=== PATIENT | male | born 1985 ===

== ENCOUNTER 2022-08-25 16:26 | Emergency (ER) | payer MEDICARE, MEDICAID, SELFPAY ==
[2022-08-25 16:39] VITALS: BP 131/114; PULSE 107; RESP 18; TEMP 36.9; O2SAT 96; BMI 31.7
--- NOTE | 2022-08-25 16:39 | ED.PSYCH ---
HPI - Psych General Chief Complaint: Psychiatric Symptoms Stated Complaint: si Time Seen by Provider: 08/25/22 16:28 Source: patient, EMS and police Mode of arrival: EMS Limitations: no limitations History of Present Illness HPI Narrative: 37-year-old male presents via EMS for suicidal statements, self-injurious behaviors, and strenuous relationship with his significant other. He does admit to crack cocaine use, is on Suboxone, and has prescribed Klonopin. Patient is agitated and uncooperative. MD complaint: suicidal ideation, feels depressed and substance abuse Onset (ago): year(s) Duration: constant History of same: Yes Relieving factors: none Exacerbating factors: drug use Context: recent drug abuse and significant life stressor Associated psychiatric symptoms: depression and suicidal ideation Associated symptoms: denies other symptoms If self harm: admits thoughts of self harm and self-inflicted trauma Related Data Home Medications Medication Instructions Recorded Confirmed buprenorphine 2 mg-naloxone 0.5 mg 1 strip sublingual DAILY 08/25/22 08/25/22 sublingual film (Suboxone) clonidine HCl 0.3 mg tablet 1 tab PO BID PRN anxiety 08/25/22 08/25/22 lisinopril 20 1 tab PO DAILY 08/25/22 08/25/22 mg-hydrochlorothiazide 25 mg tablet metformin 1,000 mg tablet 1 tab PO BID 08/25/22 08/25/22 omeprazole 40 mg capsule,delayed 1 cap PO QAM 08/25/22 08/25/22 release Allergies Allergy/AdvReac Type Severity Reaction Status Date / Time No Known Allergies Allergy Verified 08/25/22 16:40 Review of Systems Review of Systems: Constitutional: No Fever, No Chills Cardiovascular: No Chest Pain, No SOB Respiratory: No Cough, No Sputum Gastrointestinal: No Nausea, No Vomiting, No Diarrhea, No abdominal Pain Genitourinary: No Dysuria, No Hematuria Musculoskeletal: No joint pain, No Myalgias, No Joint Swelling Skin: No Skin Lesions, No rash Neuro: No Weakness, No Numbness, No Dizziness, No Headache Psych: Positive substance abuse, Positive Anxiety, positive Depression, No SI/HI/AH/VH Yes all other systems are reviewed and are negative PMFSH Past Medical History Attestation statement: The following information was validated with the patient. Source: old records reviewed Social History Social History Advance Directives: No Advance Directives Information Provided: No Guardian: No Physical Exam Vital Signs: Vital Signs: Last Vital Signs Temp 98.4 F 08/25/22 16:39 Pulse 107 H 08/25/22 16:39 Resp 15 08/25/22 21:25 BP 131/114 H 08/25/22 16:39 Pulse Ox 96 08/25/22 16:39 O2 Del Method 08/25/22 16:39 BMI result Body Mass Index 31.7 Appearance: Alert. Oriented X3. Moderate psychiatric distress. Eyes: Pupils equal, round and reactive to light. ENT: Pharynx normal. Neck: Normal inspection. Neck supple. CVS: Normal heart rate and rhythm. Pulses normal. Respiratory: No respiratory distress. Breath sounds normal. Abdomen: Soft and nontender. Skin: Superficial lacerations to left forearm. Various stages of healing. Extremities: No lower extremity edema. Gait balance and coordinated. Neuro: No motor deficit. No sensory deficit. Cranial nerves 2-12 intact. Course Course Course Narrative: 37-year-old male presents via EMS with police escort for suicidal statements, and self-injurious behaviors. Patient is having relationship issues, and he cut his left arm to help alleviate his emotional distress. He does report using crack cocaine, and Klonopin. Patient belligerent, argumentative, and needs multiple redirections. Will order labs, and chemistries. Crisis consult pending. He did have a recent admission to [facility]. Patient believes that his Tdap vaccine is up-to-date. 20:00 plan of for evaluation in the morning, and CHD tomorrow afternoon possibly. Patient is medically cleared. Patient's blood pressure is elevated with an elevated heart rate consistent with crack cocaine abuse. 20:41 patient is belligerent, slamming his head against the wall, asking to leave. Medication restraint ordered at this time. Security at bedside. Medications Administered Generic Name Dose Route Start Last Admin Trade Name Freq PRN Reason Stop Dose Admin Buprenorphine/Naloxone 1 film 08/26/22 09:00 08/25/22 20:08 Buprenorphine/Naloxone 2/0.5mg Film SUBLINGUAL 1 film DAILY IVIS Administration Discontinued Medications Generic Name Dose Route Start Last Admin Trade Name Freq PRN Reason Stop Dose Admin Diphenhydramine HCl 50 mg 08/25/22 20:13 08/25/22 20:25 Diphenhydramine Hcl 50 Mg/Ml Vial IM 08/25/22 20:14 50 mg ONCE ONE Administration Haloperidol Lactate 5 mg 08/25/22 20:13 08/25/22 20:25 Haloperidol Lactate 5 Mg/Ml Vial IM 08/25/22 20:14 5 mg STAT STA Administration Lorazepam 2 mg 08/25/22 20:13 08/25/22 20:25 Lorazepam 2 Mg/Ml Vial IM 08/25/22 20:14 2 mg STAT STA Administration Medical Decision Making Differential Diagnosis Differential Diagnoses: The differential diagnosis associated with the presentation includes Psychosis, self-injurious behaviors Admission/Observation Consideration of admission/observation: Escalation of care including admission/observation considered Possible M5 admission Consult Healthcare Provider Management of the patient was discussed with: Behavioral Health Provider Lab Data [facility] Lab Attestation statement: I reviewed the patient's lab results. 08/25/22 16:58 08/25/22 16:58 Labs: Lab Results 08/25/22 08/25/22 08/25/22 Range/Units 16:51 16:58 16:58 WBC 7.2 (4.8-10.8) X10*3/uL RBC 5.13 (4.60-5.80) X10*6/uL Hgb 14.6 (14.0-18.0) g/dl Hct 43.2 (42.0-52.0) % MCV 84.2 (80.0-98.0) fL MCH 28.5 (27.0-33.0) pg MCHC 33.8 (31.0-36.0) g/dl RDW 13.4 (11.0-16.0) % Plt Count 220 (160-400) X10*3/uL MPV 9.8 (9.4-12.4) fL Immature Gran % (Auto) 0.4 (0.0-0.4) % Neut % (Auto) 60.3 (45-73) % Lymph % (Auto) 28.3 (20-40) % [place] % (Auto) 8.5 (2-11) % Eos % (Auto) 1.9 (0-4) % Baso % (Auto) 0.6 (0-2) % Lymph # (Auto) 2.0 (1.2-4.9) X10*3/uL [place] # (Auto) 0.6 (0.1-1.2) X10*3/uL Eos # (Auto) 0.1 (0.0-0.4) X10*3/uL Baso # (Auto) 0.0 (0.0-0.2) X10*3/uL Abs Immat Gran (auto) 0.03 (0.00-0.03) X10*3/uL Absolute Neuts (auto) 4.4 (2.0-8.3) x10*3/uL Absolute Nucleated RBC 0.000 (0.0-0.012) X10*3/uL Nucleated RBC % (auto) 0.0 (0.0-0.2) /100WBC Sodium 144 (135-145) mmol/L Potassium 4.5 (3.3-5.1) mmol/L Chloride 111 H (96-108) mmol/L Carbon Dioxide 25 (22-29) mmol/L Anion Gap 13 (12-20) BUN 10 (9-16) mg/dL Creatinine 0.84 (0.5-1.4) mg/dL Estim Creat Clear Calc 135.9 Estimated GFR > 60 Random Glucose 158 H (60-115) mg/dL Calcium 9.5 (8.4-10.2) mg/dL Total Bilirubin 0.3 (0.0-1.0) mg/dL AST 15 (5-37) U/L ALT 18 (0-40) U/L Alkaline Phosphatase 78 (39-117) U/L Total Protein 7.0 (6.5-8.0) g/dL Albumin 4.4 (3.5-5.0) g/dL Urine Opiates Screen Not Detected (Not Detect) Urine Fentanyl Screen POSITIVE H (Not Detect) Ur Barbiturates Screen Not Detected (Not Detect) Ur Phencyclidine Scrn Not Detected (Not Detect) Ur Amphetamines Screen Not Detected (Not Detect) U Benzodiazepines Scrn Not Detected (Not Detect) Urine Cocaine Screen POSITIVE H (Not Detect) U Marijuana (THC) Screen POSITIVE H (Not Detect) Ethyl Alcohol < 10 mg/dL Influenza Type A (PCR) (Negative) Influenza Type B (PCR) (Negative) RSV RNA Qual (PCR) (Negative) SARS-CoV-2 RNA (RT-PCR) (Negative) 08/25/22 Range/Units 16:58 WBC (4.8-10.8) X10*3/uL RBC (4.60-5.80) X10*6/uL Hgb (14.0-18.0) g/dl Hct (42.0-52.0) % MCV (80.0-98.0) fL MCH (27.0-33.0) pg MCHC (31.0-36.0) g/dl RDW (11.0-16.0) % Plt Count (160-400) X10*3/uL MPV (9.4-12.4) fL Immature Gran % (Auto) (0.0-0.4) % Neut % (Auto) (45-73) % Lymph % (Auto) (20-40) % [place] % (Auto) (2-11) % Eos % (Auto) (0-4) % Baso % (Auto) (0-2) % Lymph # (Auto) (1.2-4.9) X10*3/uL Austin # (Auto) (0.1-1.2) X10*3/uL Eos # (Auto) (0.0-0.4) X10*3/uL Baso # (Auto) (0.0-0.2) X10*3/uL Abs Immat Gran (auto) (0.00-0.03) X10*3/uL Absolute Neuts (auto) (2.0-8.3) x10*3/uL Absolute Nucleated RBC (0.0-0.012) X10*3/uL Nucleated RBC % (auto) (0.0-0.2) /100WBC Sodium (135-145) mmol/L Potassium (3.3-5.1) mmol/L Chloride (96-108) mmol/L Carbon Dioxide (22-29) mmol/L Anion Gap (12-20) BUN (9-16) mg/dL Creatinine (0.5-1.4) mg/dL Estim Creat Clear Calc Estimated GFR Random Glucose (60-115) mg/dL Calcium (8.4-10.2) mg/dL Total Bilirubin (0.0-1.0) mg/dL AST (5-37) U/L ALT (0-40) U/L Alkaline Phosphatase (39-117) U/L Total Protein (6.5-8.0) g/dL Albumin (3.5-5.0) g/dL Urine Opiates Screen (Not Detect) Urine Fentanyl Screen (Not Detect) Ur Barbiturates Screen (Not Detect) Ur Phencyclidine Scrn (Not Detect) Ur Amphetamines Screen (Not Detect) U Benzodiazepines Scrn (Not Detect) Urine Cocaine Screen (Not Detect) U Marijuana (THC) Screen (Not Detect) Ethyl Alcohol mg/dL Influenza Type A (PCR) NEGATIVE (Negative) Influenza Type B (PCR) NEGATIVE (Negative) RSV RNA Qual (PCR) NEGATIVE (Negative) SARS-CoV-2 RNA (RT-PCR) NEGATIVE (Negative) External Record Review External record reviewed: Outpatient record Discharge Plan Discharge Clinical Impression: Suicidal ideation, Depression, Polysubstance abuse Patient Disposition: Still a Patient Prescriptions: No Action clonidine HCl 0.3 mg tablet 1 tab PO BID PRN (Reason: anxiety) omeprazole 40 mg capsule,delayed release(DR/EC) 1 cap PO QAM metformin 1,000 mg tablet 1 tab PO BID lisinopril-hydrochlorothiazide 20-25 mg tablet 1 tab PO DAILY buprenorphine-naloxone [Suboxone] 2-0.5 mg film 1 strip sublingual DAILY Interventions: [place]-Suicide Risk Severity Scale Last Done: 08/25/22 22:46
--- NOTE | 2022-08-25 17:00 | PC.NURSE ---
Pt changed over with security present, section 12 by Amelia SEGOVIA. Resistant initially upon arrival to changeover. Belongings secured in locker #6. Pt cooperative with providing urine and lab draw. Lab results pending, pt currently laying on bed in room.
[2022-08-25 17:04] LABS: MANUAL DIFF FLAG NO
[2022-08-25 17:05] LABS: Basophils Percent Auto 0.6 % (0-2); Eosinophils Absolute Auto 0.1 X10*3/uL (0.0-0.4); Eosinophils Percent Auto 1.9 % (0-4); Hematocrit 43.2 % (42.0-52.0); Hemoglobin 14.6 g/dl (14.0-18.0); Imm Gran Abs Auto 0.03 X10*3/uL (0.00-0.03); Imm Gran Pct Auto 0.4 % (0.0-0.4); Lymphocytes Percent Auto 28.3 % (20-40); Mean Corpuscular HGB Conc 33.8 g/dl (31.0-36.0); Mean Corpuscular Hemoglobin 28.5 pg (27.0-33.0); Mean Corpuscular Volume 84.2 fL (80.0-98.0); Mean Platelet Volume 9.8 fL (9.4-12.4); Monocytes Absolute Auto 0.6 X10*3/uL (0.1-1.2); Monocytes Percent Auto 8.5 % (2-11); Neutrophils Absolute Auto 4.4 x10*3/uL (2.0-8.3); Neutrophils Percent Auto 60.3 % (45-73); Platelet Count 220 X10*3/uL (160-400); Red Blood Count 5.13 X10*6/uL (4.60-5.80); Red Cell Distribution Width 13.4 % (11.0-16.0); White Blood Count 7.2 X10*3/uL (4.8-10.8)
[2022-08-25 17:17] LABS: Amphetamine Screen Urine Not Detected (Not Detect); Barbiturates, Urine Not Detected (Not Detect); Benzodiazepines Screen Urine Not Detected (Not Detect); Cannabinoid Screen Urine POSITIVE (Not Detect); Cocaine Screen Urine POSITIVE (Not Detect); Fentanyl, urine POSITIVE (Not Detect); Opiate Screen Urine Not Detected (Not Detect); Phencyclidine Screen Urine Not Detected (Not Detect)
[2022-08-25 17:23] LABS: Alanine Aminotransferase 18 U/L (0-40); Albumin Level 4.4 g/dL (3.5-5.0); Alkaline Phosphatase 78 U/L (39-117); Anion Gap 13 (12-20); Aspartate Amino Transferase 15 U/L (5-37); Bilirubin Total 0.3 mg/dL (0.0-1.0); Blood Urea Nitrogen 10 mg/dL (9-16); Calcium 9.5 mg/dL (8.4-10.2); Carbon Dioxide 25 mmol/L (22-29); Chloride 111 mmol/L (96-108); Creatinine Clr Calc Pharmacy 135.9; Estimated Glomerular Filt Rate > 60; Ethanol < 10 mg/dL; Glucose Random 158 mg/dL (60-115); Potassium 4.5 mmol/L (3.3-5.1); Sodium 144 mmol/L (135-145)
[2022-08-25 17:43] LABS: Influenza A PCR NEGATIVE (Negative); Influenza B PCR NEGATIVE (Negative); Resp Syncy Virus RNA Qual PCR NEGATIVE (Negative); SARS COV2 PCR INHOUSE NEGATIVE (Negative)
[2022-08-25] MEDS: Buprenorphine/Naloxone 2/0.5mg FILM 1 FILM SUBLINGUAL (20:08)
[2022-08-25 20:25] VITALS: RESP 20
[2022-08-25] MEDS: LORazepam 2 MG/ML VIAL IM (20:25)
[2022-08-25] MEDS: Haloperidol Lactate 5 MG/ML VIAL IM (20:25)
[2022-08-25] MEDS: diphenhydrAMINE HCL 50 MG/ML VIAL IM (20:25)
[2022-08-25 20:40] VITALS: RESP 18
[2022-08-25 20:55] VITALS: RESP 17
[2022-08-25 21:10] VITALS: RESP 17
[2022-08-25 21:25] VITALS: RESP 15
--- NOTE | 2022-08-25 22:31 | PC.NURSE ---
Patient really having hard time here in the POD, thinking he should not be here, he got even more agitated when his family members and friends refused to get him, patient started head banging against wall in his room, yelling, crying, and screaming at her girl friend begging to come pick him up, patient is emotionally dysregulated, offered option of medication to calm him down, agreed to Haldol 5 mg IM + Ativan 2 mg IM + Benadryl 50 mg IM, administered at 2024/patient accepted it willingly, VSS, patient was observed on 1:1 from 2024 - 2124, currently in bed appears sleeping, respiration +/=/non labored bilaterally, will continue to monitor.
[2022-08-26] MEDS: Nicotine Polacrilex 2 MG GUM 6 MG BUCCAL (00:19)
[2022-08-26 00:25] VITALS: BP 140/80; PULSE 88; RESP 17; TEMP 36.7; O2SAT 98
--- NOTE | 2022-08-26 06:10 | PC.NURSE ---
Patient slept most part of the night, out of room x 3 sleeping in chair in hallway, patient expecting discharge today may escalate if discharge doesn't happen, patient has labile mood, at time exhibits self abusive by banging his head against wall, patient made multiple phone call to his family and friends to have him hop picker, got agitated when no one agreed, medication compliant, VSS, will continue to monitor.
[2022-08-26] MEDS: Omeprazole 40 MG CAPSULE.DR PO (06:25)
[2022-08-26] MEDS: lisinopriL 20 MG TABLET PO (08:36)
[2022-08-26] MEDS: metFORMIN HCl 1,000 MG TABLET 1000 MG PO (08:36)
[2022-08-26] MEDS: Buprenorphine/Naloxone 2/0.5mg FILM 1 FILM SUBLINGUAL (08:36)
[2022-08-26] MEDS: hydroCHLOROthiazide 25 MG TABLET PO (08:36)
[2022-08-26] MEDS: cloNIDine HCL 0.1 MG TABLET 0.3 MG PO (08:36)
[2022-08-26 08:43] VITALS: BP 159/84; PULSE 94; RESP 16; O2SAT 98
== END 2022-08-26 08:51 | disposition home or self-care (01) ==
PROVIDERS: Nurse Practitioner Family; Emergency Provider Internal Medicine
DX: F33.1 Major depressive disorder, recurrent, moderate (principal); R45.851 Suicidal ideations; F14.10 Cocaine abuse, uncomplicated; Z20.822 Contact with and (suspected) exposure to COVID-19; Z20.828 Contact with and (suspected) exposure to other viral communicable diseases; Z79.899 Other long term (current) drug therapy
CPT/HCPCS: 0241U; 36415; 80053; 80307; 82077; 85025; 96372; 99285; J1200; J2060

== ENCOUNTER 2022-12-29 10:49 | Emergency (ER) | payer OTHER, SELFPAY ==
[2022-12-29 10:53] VITALS: BP 117/93; PULSE 102; RESP 16; TEMP 36.6; O2SAT 99; BMI 31.0
--- NOTE | 2022-12-29 11:41 | ED.GENADULT ---
HPI - General Adult General Chief complaint: General Medical Stated complaint: a strip? Time Seen by Provider: 12/29/22 11:07 Source: patient Mode of arrival: ambulatory Limitations: no limitations History of Present Illness HPI narrative: 37 yo male with history of opioid use disorder and cocaine use disorder who presents to the ER for suboxone dose. He goes to [facility] in [place] and his last dose was Friday, 12/27. He has been getting weekly prescriptions for 2mg per day. He admits to taking an extra dose the other day when he did not use cocaine. He denies any heroin use. He states he is feeling like he is withdrawing with cold sweats, anxiety, chills. no N/V/D or abdominal pain. MD complaint: suboxone dose, opiate withdrawal Onset (ago): day(s) Relieving factors: none Exacerbating factors: none Treatments prior to arrival: none Related Data Home Medications Medication Instructions Recorded Confirmed buprenorphine 2 mg-naloxone 0.5 mg 1 strip sublingual DAILY 08/25/22 08/25/22 sublingual film (Suboxone) clonidine HCl 0.3 mg tablet 1 tab PO BID PRN anxiety 08/25/22 08/25/22 lisinopril 20 1 tab PO DAILY 08/25/22 08/25/22 mg-hydrochlorothiazide 25 mg tablet metformin 1,000 mg tablet 1 tab PO BID 08/25/22 08/25/22 omeprazole 40 mg capsule,delayed 1 cap PO QAM 08/25/22 08/25/22 release Allergies Allergy/AdvReac Type Severity Reaction Status Date / Time No Known Allergies Allergy Verified 08/25/22 16:40 Review of Systems Review of Systems: Yes all other systems are reviewed and are negative [facility] Social History Social History Smoked in Last 30 Days: Yes Use of substances other than those prescribed or required for medical reasons: No Advance Directives: No Advance Directives Information Provided: No Physical Exam ED Vital Signs: Vital Signs - 24 hr 12/29/22 10:53 Temperature 98 F Pulse Rate 102 H Respiratory Rate 16 Blood Pressure 117/93 H Pulse Oximetry 99 Oxygen Delivery Method Room Air BMI result Body Mass Index 31.0 Appearance: Alert. Oriented X3. anxious, restless HEENT: normal inspection CVS: Normal heart rate and rhythm. Pulses normal. Respiratory: No respiratory distress. Skin: Skin warm and dry. Normal skin color. Normal skin turgor. No rashes. Extremities: normal inspection x4 Neuro: Oriented X 3. No motor deficit. No sensory deficit. Medications Administered Discontinued Medications Generic Name Dose Route Start Last Admin Trade Name Ryan PRN Reason Stop Dose Admin Buprenorphine/Naloxone 1 film 12/29/22 11:38 12/29/22 11:42 Buprenorphine/Naloxone 2/0.5mg Film SUBLINGUAL 12/29/22 11:39 1 film ONCE ONE Administration Medical Decision Making Medical Decision Making MDM Narrative: 37 yo male with history of polysubstance abuse on suboxone 2/0.5 daily presenting for a dose, c/o active withdrawal. [employer]ELOPMENT reviewed - has been getting 7 day supply and supposed to have enough until tomorrow but admits to taking an extra dose when he did not use cocaine will give 2mg/0.5 film now and have him f/u with his clinic tomorrow stable for d/c home Differential Diagnosis Differential Diagnoses: The differential diagnosis associated with the presentation includes opioid withdrawal, cocaine withdrawal Consult Healthcare Provider Management of the patient was discussed with: [employer] Manager ariel from recovery External Record Review External record reviewed: Prior outpatient labs Prescription Management I considered prescription management with: Pain Medication Chronic Conditions Patient?s care impacted by: Other (polysubstance abuse) Social Determinants Patient?s care significantly limited by Social Determinants of Health including: Alcoholism and drug addiction in family and Other Social Determinant of Health Critical Care Time Critical Care Time Critical Care Time: No Discharge Plan Discharge Clinical Impression: Opioid use disorder Patient Disposition: Home, Self-Care Instructions: Opioid Use Disorder (ED) Additional Instructions: You were given 2mg of suboxone today 12/29. Follow up with your clinic tomorrow Do not use IV drugs Prescriptions: No Action clonidine HCl 0.3 mg tablet 1 tab PO BID PRN (Reason: anxiety) omeprazole 40 mg capsule,delayed release(DR/EC) 1 cap PO QAM metformin 1,000 mg tablet 1 tab PO BID lisinopril-hydrochlorothiazide 20-25 mg tablet 1 tab PO DAILY buprenorphine-naloxone [Suboxone] 2-0.5 mg film 1 strip sublingual DAILY Interventions: ED Discharge Assessment Last Done: 12/29/22 11:48 Discharge Date/Time: 12/29/22 11:50
[2022-12-29] MEDS: Buprenorphine/Naloxone 2/0.5mg FILM 1 FILM SUBLINGUAL (11:42)
--- NOTE | 2022-12-29 11:42 | MHC.RECOVRN ---
Met with pt in [facility] after pt presented to ED needing Suboxone dose. Pt sitting on bed, extremely anxious, diaphoretic, pleading for Suboxone. Per JosePAT, pt received 7 day script on 12/23, 2 mg daily. Pt reports last dose on Wednesday 12/27. Pt reports missing appointment on Friday and has an appt scheduled tomorrow. Pt reports using cocaine and when he does not use cocaine he takes extra Suboxone, hence the lack of films. Pt denies other opioid use x 5 years. Pt educated on risks of precipitated withdrawal, verbalizes understanding. Discussed with provider, plan to administer 2 mg Suboxone and pt will follow up with outpatient provider tomorrow, 12/30.
--- NOTE | 2022-12-29 11:49 | PC.NURSE ---
Patient presents for dose of suboxone, patient is alert and oriented but restless in room. Patient has no complaints other than needing suboxone dose.
== END 2022-12-29 11:50 | disposition home or self-care (01) ==
PROVIDERS: Emergency Provider Emergency Medicine
DX: F11.23 Opioid dependence with withdrawal (principal); Z79.899 Other long term (current) drug therapy
CPT/HCPCS: 99283; 99284

== ENCOUNTER 2022-12-30 06:04 | Emergency (ER) | payer OTHER, SELFPAY ==
--- NOTE | 2022-12-30 | ECG_ITS ---
Test Reason : CHEST TIGHTNESS Blood Pressure : / mmHG Vent. Rate : 070 BPM Atrial Rate : 070 BPM P-R Int : 162 ms QRS Dur : 082 ms QT Int : 388 ms P-R-T Axes : 010 036 034 degrees QTc Int : 419 ms Normal sinus rhythm Normal ECG No previous ECGs available Referred By: Generic ED Physician Electronically Signed By:Joesph Kenney
--- NOTE | ~2022-12-30 | XR_ITS ---
EXAMINATION: XR CHEST CLINICAL INFORMATION: Chest pain COMPARISON: None available. TECHNIQUE: 2 views of the chest were obtained. FINDINGS: No significant abnormality is noted involving the heart, lungs, mediastinum, bony thorax or soft tissues. XR/XR chest 2V IMPRESSION: Unremarkable chest examination.
[2022-12-30 06:17] VITALS: BP 148/95; PULSE 77; RESP 20; TEMP 36.4; O2SAT 98; BMI 30.8
[2022-12-30 07:15] LABS: MANUAL DIFF FLAG NO
[2022-12-30 07:17] LABS: Basophils Percent Auto 0.4 % (0-2); Eosinophils Absolute Auto 0.1 X10*3/uL (0.0-0.4); Eosinophils Percent Auto 1.4 % (0-4); Hematocrit 41.6 % (42.0-52.0); Hemoglobin 14.3 g/dl (14.0-18.0); Imm Gran Abs Auto 0.03 X10*3/uL (0.00-0.03); Imm Gran Pct Auto 0.4 % (0.0-0.4); Lymphocytes Absolute Auto 2.4 X10*3/uL (1.2-4.9); Mean Corpuscular HGB Conc 34.4 g/dl (31.0-36.0); Mean Corpuscular Hemoglobin 28.7 pg (27.0-33.0); Mean Corpuscular Volume 83.5 fL (80.0-98.0); Mean Platelet Volume 9.8 fL (9.4-12.4); Monocytes Absolute Auto 0.6 X10*3/uL (0.1-1.2); Monocytes Percent Auto 8.1 % (2-11); Neutrophils Absolute Auto 4.7 x10*3/uL (2.0-8.3); Neutrophils Percent Auto 59.7 % (45-73); Platelet Count 271 X10*3/uL (160-400); Red Blood Count 4.98 X10*6/uL (4.60-5.80); Red Cell Distribution Width 13.4 % (11.0-16.0); White Blood Count 7.9 X10*3/uL (4.8-10.8)
--- NOTE | 2022-12-30 07:33 | ED.GENADULT ---
HPI - General Adult General Chief complaint: General Medical Stated complaint: Insomnia Time Seen by Provider: 12/30/22 06:29 Source: patient and RN notes reviewed Mode of arrival: ambulatory Limitations: no limitations History of Present Illness HPI narrative: This is a 37-year-old male, with a past medical history of substance abuse, who presents emergency department today with complaints of opioid withdrawal requesting Suboxone dose. Patient reports that he goes to [facility] in [place] and his last dose was yesterday while he was in the emergency department. Patient reports that last week he took an extra dose of suboxone after using cocaine last week and ultimately ran out of his prescription early. He has his Suboxone appointment at 1:00 p.m. today but states that his opioid withdrawal is too significant that he is unable to wait till then. He describes his opioid withdrawal with cold sweats, anxiety, restless legs. Patient reports that 4 days ago after smoking cocaine he developed left-sided chest pain that was waxing and weaning for the entire day. He has not had chest pain since then. He reports that since he used cocaine 4 days ago he has been unable to sleep. He also admits to a ?small amount of cocaine use? yesterday. Denies any chest pain, shortness of breath, nausea vomiting or diarrhea. No other complaints or concerns at this time. MD complaint: opioid withdrawal Onset (ago): hour(s) Relieving factors: none Exacerbating factors: none Associated symptoms: denies other symptoms Treatments prior to arrival: none Related Data Home Medications Medication Instructions Recorded Confirmed buprenorphine 2 mg-naloxone 0.5 mg 1 strip sublingual DAILY 08/25/22 08/25/22 sublingual film (Suboxone) clonidine HCl 0.3 mg tablet 1 tab PO BID PRN anxiety 08/25/22 08/25/22 lisinopril 20 1 tab PO DAILY 08/25/22 08/25/22 mg-hydrochlorothiazide 25 mg tablet metformin 1,000 mg tablet 1 tab PO BID 08/25/22 08/25/22 omeprazole 40 mg capsule,delayed 1 cap PO QAM 08/25/22 08/25/22 release Previous Rx's Medication Instructions Recorded melatonin 2.5 mg chewable tablet 2.5 mg PO BEDTIME PRN insomnia #7 12/30/22 tabs naloxone 4 mg/actuation nasal 1 spray intranasal Q2M #2 ea 12/30/22 spray (Narcan) Allergies Allergy/AdvReac Type Severity Reaction Status Date / Time No Known Allergies Allergy Verified 12/30/22 06:20 Review of Systems Review of Systems: Constitutional: +sweats No Weight loss, No Fever, +Chills, No Night Sweats, No Fatigue, No Malaise ENT/Mouth: No Hearing loss, No Ear Pain, No Nasal Congestion, No Sinus Pain, No Hoarseness, No sore throat, No Rhinorrhea, No Swallowing Difficulty Eyes: No Eye Pain, No Swelling, No Redness, No Foreign Body, No Discharge, No Vision Changes Cardiovascular: No Chest Pain, No SOB, No Dyspnea on Exertion, No Orthopnea, No Edema, No Palpitations Respiratory: No Cough, No Sputum, No Wheezing, No Smoke Exposure, No Dyspnea Gastrointestinal: No Nausea, No Vomiting, No Diarrhea, No Constipation, No Abdominal pain, No Hematochezia, No Melena Genitourinary: No irregular bleeding, No Dysuria, No Urinary Frequency, No Hematuria, No Urinary Incontinence/retention, No Urgency, No Flank Pain, No Urinary Flow Changes, No Hesitancy Musculoskeletal: No joint pain, No Myalgias, No Joint Swelling Skin: No Skin Lesions, No rash Neuro: No Weakness, No Numbness, No Paresthesias, No Loss of Consciousness, No Dizziness, No Headache Psych: +Anxiety/Panic, No Depression, No SI/HI/AH/VH, No Social Issues, Heme/Lymph: No Bruising, No Bleeding,No Lymphadenopathy Endocrine: No Polyuria, No Polydipsia, No Temperature Intolerance Yes all other systems are reviewed and are negative [facility] Social History Social History Smoked in Last 30 Days: Yes Use of substances other than those prescribed or required for medical reasons: Yes Substance Use Type: Crack/Cocaine Advance Directives: No Advance Directives Information Provided: Yes Physical Exam ED Vital Signs: Vital Signs - 24 hr 12/30/22 06:17 12/30/22 08:18 12/30/22 10:03 Temperature 97.5 F 97.7 F Pulse Rate 77 66 75 Respiratory Rate 20 18 17 Blood Pressure 148/95 H 139/83 126/76 Pulse Oximetry 98 96 98 Oxygen Delivery Method Room Air Room Air Room Air BMI result Body Mass Index 30.8 Const General: cooperative, comfortable, anxious and diaphoretic Orientation/consciousness: patient oriented x3 Limitations: no limitations HENMT Head: Yes normal to inspection, Yes normocephalic and Yes atraumatic Ears: hearing grossly normal bilaterally General nose exam: Normal external nose present Face and sinus: Yes normal facial exam Mouth: Normal oral and palatal mucosa present, oropharynx normal and moist mucous membranes Throat: Yes posterior oropharynx normal Eyes General: appearance normal, both eyes and all related structures Eyelids: Yes eyelids normal Conjunctivae: conjunctivae normal Sclerae: sclerae normal Pupils: Equal, round and reactive pupils present EOM: EOMs intact bilaterally Neck Neck: Yes normal visual inspection, Yes full ROM and Yes no lymphadenopathy Lymphatic: no lymphadenopathy noted Chest Chest palpation & inspection: normal inspection of the chest and normal palpation of entire chest wall Resp Effort & Inspection: normal respiratory effort and able to speak in complete sentences Auscultation: clear to auscultation bilaterally, no crackles, no rales, no rhonchi and no wheezes Cardio Rate: regular rate Rhythm: regular rhythm Heart sounds: S1 normal heart sound present and S2 normal heart sound present GI Inspection: Yes normal to inspection Skin General skin exam: no rashes or lesions noted Trauma: no lacerations or abrasions Wounds: no wounds Neuro General: patient oriented x3 and moves all extremities Cranial nerves: Yes Equal, round and reactive pupils present Extrem General: Yes normal to inspection Right upper extremity: normal to inspection Left upper extremity: normal to inspection Right lower extremity: normal to inspection Left lower extremity: normal to inspection Course Reevaluation(s) Reevaluation #1: Long discussion with patient regarding sobriety, reports that he has been on Suboxone for the last 3 years however has been intermittently using cocaine while on it. Patient is currently living with other individuals that are also using, making it very difficult for him to go to abstain from drugs. He used to attend [facility] which worked well for him however he met his girlfriend who was using drugs and ultimately stopped going to . He does not have sponsor. I offered services of [facility] recovery operator, and is willing to speak with him today. After receiving Suboxone dose today, patient appears calm, less anxious, no longer sweating. Patient reports that his opioid withdrawal symptoms have improved. Lab work with no leukocytosis, electrolytes within normal limits, normal liver function, troponin 3.1, repeat due at 10, negative alcohol level, urinalysis and drug screening is pending. EKG normal sinus rhythm with no ST elevation or depression. Time: 09:11 Reevaluation #2: Second troponin 2.7. EKG normal, all other labs unremarkable. Patient tested positive for cocaine, fentanyl, and opiates. Patient spoke with [facility] recovery operator and given resources. Patient does not want to go to detox at this time. Discussed with patient that his workup today was unremarkable. Advised patient to stop using cocaine as this can cause heart attacks. He will be following up with his outpatient Suboxone provider for further management of his opioid dependency. He does not have any chest pain, shortness of breath, vital signs remained stable throughout entire hospitalization stay. Patient requesting medication to help with his insomnia however I discussed at length that his insomnia is likely due to take cocaine use as well as fentanyl use. And that he will continue to struggle with his sleep unless he stops using these drugs. I sent a small prescription for melatonin, as he reports he has no money to purchase this [id number]. Also sent a prescription for Narcan. Patient is stable for discharge. Time: 12:03 Medications Administered Discontinued Medications Generic Name Dose Route Start Last Admin Trade Name Freq PRN Reason Stop Dose Admin Buprenorphine/Naloxone 1 film 12/30/22 07:33 12/30/22 08:20 Buprenorphine/Naloxone 2/0.5mg Film SUBLINGUAL 12/30/22 07:34 1 film ONCE ONE Administration Medical Decision Making Medical Decision Making [facility] Narrative: 37-year-old male, with a past medical history of polysubstance abuse, who presents emergency department today with complaints of opioid withdrawal. Patient is requesting Suboxone dose and see ran out of his Suboxone as he overused his prescription after using cocaine last week. The patient was seen yesterday for the same symptoms. He has follow-up at his Suboxone Clinic at 12:00 a.m. this afternoon but is unable to wait until then secondary to opioid withdrawal symptoms. On examination vital signs are stable she is on, patient is anxious appearing, diaphoretic jittery. Plan: Labs, EKG, suboxone 2 mg film ordered. Differential Diagnosis Differential Diagnoses: The differential diagnosis associated with the presentation includes Polysubstance abuse, opioid withdrawal, anxiety, depression, Lab Data 12/30/22 07:08 12/30/22 07:08 Labs: Lab Results 12/30/22 12/30/22 12/30/22 Range/Units 07:08 07:08 07:08 WBC 7.9 (4.8-10.8) X10*3/uL RBC 4.98 (4.60-5.80) X10*6/uL Hgb 14.3 (14.0-18.0) g/dl Hct 41.6 L (42.0-52.0) % MCV 83.5 (80.0-98.0) fL MCH 28.7 (27.0-33.0) pg MCHC 34.4 (31.0-36.0) g/dl RDW 13.4 (11.0-16.0) % Plt Count 271 (160-400) X10*3/uL MPV 9.8 (9.4-12.4) fL Immature Gran % (Auto) 0.4 (0.0-0.4) % Neut % (Auto) 59.7 (45-73) % Lymph % (Auto) 30.0 (20-40) % [place] % (Auto) 8.1 (2-11) % Eos % (Auto) 1.4 (0-4) % Baso % (Auto) 0.4 (0-2) % Lymph # (Auto) 2.4 (1.2-4.9) X10*3/uL [place] # (Auto) 0.6 (0.1-1.2) X10*3/uL Eos # (Auto) 0.1 (0.0-0.4) X10*3/uL Baso # (Auto) 0.0 (0.0-0.2) X10*3/uL Abs Immat Gran (auto) 0.03 (0.00-0.03) X10*3/uL Absolute Neuts (auto) 4.7 (2.0-8.3) x10*3/uL Absolute Nucleated RBC 0.000 (0.0-0.012) X10*3/uL Nucleated RBC % (auto) 0.0 (0.0-0.2) /100WBC Sodium 137 (135-145) mmol/L Potassium 4.2 (3.3-5.1) mmol/L Chloride 103 (96-108) mmol/L Carbon Dioxide 23 (22-29) mmol/L Anion Gap 15 (12-20) BUN 14 (9-16) mg/dL Creatinine 0.95 (0.5-1.4) mg/dL Estim Creat Clear Calc 118.5 Estimated GFR > 60 Random Glucose 224 H (60-115) mg/dL Calcium 9.6 (8.4-10.2) mg/dL Total Bilirubin 0.6 (0.0-1.0) mg/dL Direct Bilirubin 0.1 (0.0-0.5) mg/dL AST 16 (5-37) U/L ALT 21 (0-40) U/L Alkaline Phosphatase 100 (39-117) U/L Troponin I High Sens 3.1 (<3.5-35.0) ng/L Total Protein 7.3 (6.5-8.0) g/dL Albumin 4.5 (3.5-5.0) g/dL Lipase 15 (8-78) U/L Urine Color Urine Appearance Urine pH (5.0-9.0) Ur Specific [place] (1.005-1.025) Urine Protein (Neg-Trace) mg/dL Urine Glucose (UA) (Negative) mg/dL Urine Ketones (Negative) mg/dL Urine Blood (Negative) Urine Nitrite (Negative) Ur Leukocyte Esterase (Negative) Urine Opiates Screen (Not Detect) Urine Fentanyl Screen (Not Detect) Ur Barbiturates Screen (Not Detect) Ur Phencyclidine Scrn (Not Detect) Ur Amphetamines Screen (Not Detect) U Benzodiazepines Scrn (Not Detect) Urine Cocaine Screen (Not Detect) U Marijuana (THC) Screen (Not Detect) Ethyl Alcohol < 10 mg/dL 12/30/22 12/30/22 12/30/22 Range/Units 09:06 09:06 10:31 WBC (4.8-10.8) X10*3/uL RBC (4.60-5.80) X10*6/uL Hgb (14.0-18.0) g/dl Hct (42.0-52.0) % MCV (80.0-98.0) fL MCH (27.0-33.0) pg MCHC (31.0-36.0) g/dl RDW (11.0-16.0) % Plt Count (160-400) X10*3/uL MPV (9.4-12.4) fL Immature Gran % (Auto) (0.0-0.4) % Neut % (Auto) (45-73) % Lymph % (Auto) (20-40) % [place] % (Auto) (2-11) % Eos % (Auto) (0-4) % Baso % (Auto) (0-2) % Lymph # (Auto) (1.2-4.9) X10*3/uL [place] # (Auto) (0.1-1.2) X10*3/uL Eos # (Auto) (0.0-0.4) X10*3/uL Baso # (Auto) (0.0-0.2) X10*3/uL Abs Immat Gran (auto) (0.00-0.03) X10*3/uL Absolute Neuts (auto) (2.0-8.3) x10*3/uL Absolute Nucleated RBC (0.0-0.012) X10*3/uL Nucleated RBC % (auto) (0.0-0.2) /100WBC Sodium (135-145) mmol/L Potassium (3.3-5.1) mmol/L Chloride (96-108) mmol/L Carbon Dioxide (22-29) mmol/L Anion Gap (12-20) BUN (9-16) mg/dL Creatinine (0.5-1.4) mg/dL Estim Creat Clear Calc Estimated GFR Random Glucose (60-115) mg/dL Calcium (8.4-10.2) mg/dL Total Bilirubin (0.0-1.0) mg/dL Direct Bilirubin (0.0-0.5) mg/dL AST (5-37) U/L ALT (0-40) U/L Alkaline Phosphatase (39-117) U/L Troponin I High Sens < 2.7 (<3.5-35.0) ng/L Total Protein (6.5-8.0) g/dL Albumin (3.5-5.0) g/dL Lipase (8-78) U/L Urine Color Yellow Urine Appearance Clear Urine pH 6.5 (5.0-9.0) Ur Specific [place] 1.015 (1.005-1.025) Urine Protein Negative (Neg-Trace) mg/dL Urine Glucose (UA) Negative (Negative) mg/dL Urine Ketones Negative (Negative) mg/dL Urine Blood Negative (Negative) Urine Nitrite Negative (Negative) Ur Leukocyte Esterase Negative (Negative) Urine Opiates Screen Not Detected (Not Detect) Urine Fentanyl Screen POSITIVE H (Not Detect) Ur Barbiturates Screen Not Detected (Not Detect) Ur Phencyclidine Scrn Not Detected (Not Detect) Ur Amphetamines Screen Not Detected (Not Detect) U Benzodiazepines Scrn Not Detected (Not Detect) Urine Cocaine Screen POSITIVE H (Not Detect) U Marijuana (THC) Screen POSITIVE H (Not Detect) Ethyl Alcohol mg/dL Independent Interpretation I performed an independent interpretation of an: EKG Interpretation: EKG normal sinus rhythm with a ventricular rate of 70 beats per minute, MT interval 162, QTC 419, no ST elevation or depression Radiology Impression Discussion of test interpretation with radiology: I have reviewed the radiologist's reading. Radiologist Impression: Attending Dr: Ordering Physician: Jaclyn Chu Date of Service: 12/30/22 Procedure(s): XR chest 2V Accession Number(s): [id number] cc: Jaclyn Chu~ EXAMINATION: XR CHEST CLINICAL INFORMATION: Chest pain COMPARISON: None available. TECHNIQUE: 2 views of the chest were obtained. FINDINGS: No significant abnormality is noted involving the heart, lungs, mediastinum, bony thorax or soft tissues. XR/XR chest 2V IMPRESSION: Unremarkable chest examination. Critical Care Time Critical Care Time Critical Care Time: Yes Total Critical Care Time: 34 Attestation: I have personally provided critical care time exclusive of time spent on separately billable procedures. Time includes review of lab data, radiology results, discussion with consultants, and monitoring for potential decompensation. Intervention performed as documented. Extensive counseling regarding substance use in coordinating care with the recovery coaches. Discharge Plan Discharge Clinical Impression: Cocaine abuse, Opiate dependence Patient Disposition: Home, Self-Care Instructions: Cocaine Abuse (ED), Opioid Withdrawal (ED) Additional Instructions: We gave you 1 dose of Suboxone today. Please follow-up with your outpatient clinic as we cannot continue to administer Suboxone to you if you keep overusing this. Stop using drugs. Your symptoms are likely due to cocaine use and this will only cause you to go into precipitated withdrawal as well as insomnia. Cocaine can cause heart attacks therefore it is crucial that you stop using this. If any new or worsening symptoms occur please return for re-evaluation. Prescriptions: New naloxone [Narcan] 4 mg/actuation spray,non-aerosol 1 spray intranasal Q2M Qty: 2 0RF Rx Instructions: spray 1 dose into ONE nostril; alternate nostrils w each dose until help arrives melatonin 2.5 mg tablet,chewable 2.5 mg PO BEDTIME PRN (Reason: insomnia) Qty: 7 0RF No Action clonidine HCl 0.3 mg tablet 1 tab PO BID PRN (Reason: anxiety) omeprazole 40 mg capsule,delayed release(DR/EC) 1 cap PO QAM metformin 1,000 mg tablet 1 tab PO BID lisinopril-hydrochlorothiazide 20-25 mg tablet 1 tab PO DAILY buprenorphine-naloxone [Suboxone] 2-0.5 mg film 1 strip sublingual DAILY Interventions: ED Discharge Assessment Last Done: 12/30/22 11:46 Discharge Date/Time: 12/30/22 11:46
[2022-12-30 07:37] LABS: Alanine Aminotransferase 21 U/L (0-40); Albumin Level 4.5 g/dL (3.5-5.0); Alkaline Phosphatase 100 U/L (39-117); Anion Gap 15 (12-20); Aspartate Amino Transferase 16 U/L (5-37); Bilirubin Direct 0.1 mg/dL (0.0-0.5); Bilirubin Total 0.6 mg/dL (0.0-1.0); Blood Urea Nitrogen 14 mg/dL (9-16); Calcium 9.6 mg/dL (8.4-10.2); Carbon Dioxide 23 mmol/L (22-29); Chloride 103 mmol/L (96-108); Creatinine Clr Calc Pharmacy 118.5; Estimated Glomerular Filt Rate > 60; Ethanol < 10 mg/dL; Glucose Random 224 mg/dL (60-115); Lipase 15 U/L (8-78); Potassium 4.2 mmol/L (3.3-5.1); Sodium 137 mmol/L (135-145); Total Protein 7.3 g/dL (6.5-8.0)
[2022-12-30 07:43] LABS: Troponin-I High Sensitivity 3.1 ng/L (<3.5-35.0)
[2022-12-30 08:18] VITALS: BP 139/83; PULSE 66; RESP 18; TEMP 36.5; O2SAT 96
[2022-12-30] MEDS: Buprenorphine/Naloxone 2/0.5mg FILM 1 FILM SUBLINGUAL (08:20)
--- NOTE | 2022-12-30 08:28 | PC.NURSE ---
pt is alert and oriented, skin pwd, respiration even and unlabored, ls clear, pt denies pain but states that he has sever restless leg syndrome and can't sleep for the last couple of days. ns on the monitor and vs stable
[2022-12-30 09:22] LABS: Appearance Urine Clear; Color Urine Yellow; Glucose Urine UA Negative (Negative); Leukocyte Esterase Urine Negative (Negative); Nitrite Urine Negative (Negative); PH 6.5 (5.0-9.0); Specific Gravity - Urine 1.015 (1.005-1.025); Urine Blood Negative (Negative); Urine Ketones Negative (Negative); Urine Protein Negative (Neg-Trace)
[2022-12-30 09:24] LABS: Amphetamine Screen Urine Not Detected (Not Detect); Barbiturates, Urine Not Detected (Not Detect); Benzodiazepines Screen Urine Not Detected (Not Detect); Cannabinoid Screen Urine POSITIVE (Not Detect); Cocaine Screen Urine POSITIVE (Not Detect); Fentanyl, urine POSITIVE (Not Detect); Opiate Screen Urine Not Detected (Not Detect); Phencyclidine Screen Urine Not Detected (Not Detect)
[2022-12-30 10:03] VITALS: BP 126/76; PULSE 75; RESP 17; O2SAT 98
[2022-12-30 11:14] LABS: Troponin-I High Sensitivity < 2.7 ng/L (<3.5-35.0)
--- NOTE | 2022-12-30 11:39 | MHC.RECOVSUP ---
Met with pt in ED6 for potential ATS bed search. Pt informs he has been smoking crack but this time it felt like he was going to OD. Pt was unaware that there was Fentanyl in his crack when he smoked it. Pt informs he wants to go to ATS but feels like he isnt ready yet as he would just end up going back home after to a house with 4 other people still using. T/W an pt discussed options for pt to find new living situations and potentially CSS after ATS. Pt was provided recovery resources along with a test kit to test his crack before he uses. Pt has no other questions or concerns at this time and is ready to DC, provider is aware.
== END 2022-12-30 11:46 | disposition home or self-care (01) ==
PROVIDERS: Physician Assistant Medical; Emergency Provider Emergency Medicine Emergency Medical Services
DX: G47.00 Insomnia, unspecified (principal); R07.89 Other chest pain; F14.10 Cocaine abuse, uncomplicated; F11.20 Opioid dependence, uncomplicated; Z79.899 Other long term (current) drug therapy
CPT/HCPCS: 36415; 71046; 80053; 80307; 81003; 82248; 83690; 84484; 85025; 93005; 99284

== ENCOUNTER 2023-01-07 16:17 | Emergency (ER) | payer OTHER, SELFPAY ==
--- NOTE | ~2023-01-07 | XR_ITS ---
EXAMINATION: XR MANDIBLE CLINICAL INFORMATION: Evaluate for dislocation. COMPARISON: None available. TECHNIQUE: 4 views of the mandible were obtained. FINDINGS: Evaluation is very limited due to suboptimal positioning secondary to patient's pain. There appears to be dislocation of the left mandibular rami, however evaluation is very limited. No definite evidence of displaced fractures. XR/XR mandible min 4V IMPRESSION: Very limited examination with equivocal dislocation of the left mandibular rami, if indicated consider further imaging with a maxillofacial CT.
--- NOTE | ~2023-01-07 | CT_ITS ---
EXAMINATION: CT MAXILLOFACIAL WITHOUT CONTRAST CLINICAL INFORMATION: Mandibular pain. Dislocation. COMPARISON: Mandibular radiographs from 01/07/2023. TECHNIQUE: Multidetector helical imaging was performed in the axial plane with generation of coronal and sagittal reformatted images. This CT examination was performed using dose optimization techniques as appropriate, variously including the following: *Automated exposure control *Adjustment of mA and/or kV according to patient size (this includes techniques or standardized protocols for targeted exams where dose is matched to indication/reason for exam; i.e. extremities or head) *Use of iterative reconstruction technique DLP: 336 mGy-cm FINDINGS: FRONTAL SINUSES AND DRAINAGE PATHWAYS: The frontal sinuses are clear. The frontoethmoidal recesses are patent. MAXILLARY SINUSES AND DRAINAGE PATHWAYS: Mucous retention cyst within the left maxillary sinus. Mild mucosal thickening of the right maxillary sinus.. The maxillary ostia and infundibula are patent. ETHMOID SINUSES: The ethmoid air cells are clear. The ethmoid roofs appear symmetric and intact. SPHENOID SINUS AND DRAINAGE PATHWAYS: The sphenoid sinus is clear. The sphenoethmoidal recesses are patent. The carotid canals are normally covered by bone. NASAL PASSAGE: Mild mucosal thickening of the nasal passages. Mild leftward nasal septal deviation. ORBITS: Normal appearance of the osseous orbits. The lamina papyracea are intact. No significant preseptal or retrobulbar edema. Normal appearance of the globes. Normal symmetric appearance of the extraocular musculature. No abnormalities of the intraconal or extraconal adipose tissue. Normal appearance of the optic nerve sheaths. Normal appearance of the lacrimal glands. No orbital fluid collections. No abnormalities of the orbital apices. TEMPOROMANDIBULAR JOINTS: The temporomandibular joints remain well aligned. Minimal degenerative arthropathy of the temporomandibular joints. ADDITIONAL RELEVANT FINDINGS: No evidence of maxillofacial bone fractures. The zygomatic arches remain intact. No nasal bone fracture. No evidence of mandibular or maxillary fracture. Multifocal odontogenic enamel erosions. The bilateral maxillary canines are horizontally positioned and unerupted. The visualized mastoid air cells and middle ear cavities remain well aerated. Limited evaluation of the intracranial structures without significant abnormalities. The premaxillary, retromaxillary, pterygopalatine fossa, temporal fossa, and parapharyngeal adipose tissue is maintained. No demonstrated soft tissue abnormalities within the intrinsic tissues of the tongue. CT/CT facial bones wo IV con IMPRESSION: 1. Mild sinonasal mucosal disease. Mild leftward nasal septal deviation. 2. The temporomandibular joints remain well aligned. Minimal degenerative arthropathy of the temporomandibular joints. 3. Multifocal odontogenic disease. The bilateral maxillary canines are horizontally positioned and unerupted.
--- NOTE | 2023-01-07 16:26 | ED_ITS ---
HPI - Dental/Oral General Chief complaint: General Medical Stated complaint: jaw pain Time Seen by Provider: 01/07/23 16:26 Source: patient Mode of arrival: EMS Limitations: no limitations History of Present Illness HPI Narrative: Patient with hx hypertension on Suboxone comes in with locked jaw started prior to arrival patient states that he had similar it happened few years ago after receiving wrong medication no other muscle spasm no fever no chills no toothache no trauma Related Data Home Medications Medication Instructions Recorded Confirmed buprenorphine 2 mg-naloxone 0.5 mg 1 strip sublingual DAILY 08/25/22 08/25/22 sublingual film (Suboxone) clonidine HCl 0.3 mg tablet 1 tab PO BID PRN anxiety 08/25/22 08/25/22 lisinopril 20 1 tab PO DAILY 08/25/22 08/25/22 mg-hydrochlorothiazide 25 mg tablet metformin 1,000 mg tablet 1 tab PO BID 08/25/22 08/25/22 omeprazole 40 mg capsule,delayed 1 cap PO QAM 08/25/22 08/25/22 release Previous Rx's Medication Instructions Recorded melatonin 2.5 mg chewable tablet 2.5 mg PO BEDTIME PRN insomnia #7 12/30/22 tabs naloxone 4 mg/actuation nasal 1 spray intranasal Q2M #2 ea 12/30/22 spray (Narcan) diphenhydramine HCl 25 mg capsule 25 mg PO TID PRN muscle spasm #20 01/07/23 (Benadryl) caps Allergies Allergy/AdvReac Type Severity Reaction Status Date / Time No Known Allergies Allergy Verified 12/30/22 06:20 Review of Systems Review of Systems: Yes all other systems are reviewed and are negative [facility] Social History Social History Smoked in Last 30 Days: Yes Substance Use Type: Crack/Cocaine Advance Directives: No Advance Directives Information Provided: Yes Physical Exam Vital Signs: Vital Signs: Last Vital Signs Pulse 90 01/07/23 19:54 Resp 16 01/07/23 19:54 BP 173/91 H 01/07/23 19:54 Pulse Ox 99 01/07/23 19:54 O2 Del Method Room Air 01/07/23 19:54 BMI result Body Mass Index 33.2 Appearance: Alert. Oriented X3. No acute distress. Eyes: PERRLA, No Nystagmus ENT: Pharynx normal. Oral Mucosa moist masseter muscle spasm tender right mandible joint Neck: Normal inspection. Neck supple. CVS: Normal heart rate and rhythm. Pulses normal. Respiratory: No respiratory distress. Abdomen: Soft and nontender. Skin: Skin warm and dry. Normal skin color. Normal skin turgor. Extremities: No lower extremity edema. No calf tenderness Neuro: Oriented X 3. Medications Administered Discontinued Medications Generic Name Dose Route Start Last Admin Trade Name Freq PRN Reason Stop Dose Admin Diphenhydramine HCl 25 mg 01/07/23 16:36 01/07/23 16:56 Diphenhydramine Hcl 50 Mg/Ml Vial IVPUSH 01/07/23 16:37 25 mg ONCE ONE Administration Diphenhydramine HCl 25 mg 01/07/23 19:37 01/07/23 19:49 Diphenhydramine Hcl 50 Mg/Ml Vial IVPUSH 01/07/23 19:38 25 mg ONCE ONE Administration Ketorolac Tromethamine 30 mg 01/07/23 16:31 01/07/23 16:56 Ketorolac Tromethamine 30 Mg/Ml Vial IVPUSH 01/07/23 16:32 30 mg ONCE ONE Administration Medical Decision Making Medical Decision Making MDM Narrative: Patient with massester spasm/dystonic reaction CT scan negative for dislocation or fracture patient's symptoms improved with Benadryl discharge patient on Benadryl Discharge Plan Discharge Clinical Impression: Dystonia Patient Disposition: Home, Self-Care Instructions: Muscle Spasm (ED) Additional Instructions: Take Benadryl 1 tablet every 8 hours as needed for muscle spasm Drink plenty of fluids Prescriptions: New diphenhydramine HCl [Benadryl] 25 mg capsule 25 mg PO TID PRN (Reason: muscle spasm) Qty: 20 0RF No Action clonidine HCl 0.3 mg tablet 1 tab PO BID PRN (Reason: anxiety) omeprazole 40 mg capsule,delayed release(DR/EC) 1 cap PO QAM metformin 1,000 mg tablet 1 tab PO BID lisinopril-hydrochlorothiazide 20-25 mg tablet 1 tab PO DAILY buprenorphine-naloxone [Suboxone] 2-0.5 mg film 1 strip sublingual DAILY naloxone [Narcan] 4 mg/actuation spray,non-aerosol 1 spray intranasal Q2M Qty: 2 0RF Rx Instructions: spray 1 dose into ONE nostril; alternate nostrils w each dose until help arrives melatonin 2.5 mg tablet,chewable 2.5 mg PO BEDTIME PRN (Reason: insomnia) Qty: 7 0RF Interventions: ED Discharge Assessment Last Done: 01/07/23 20:46 Discharge Date/Time: 01/07/23 20:47
[2023-01-07 16:27] VITALS: BP 191/101; PULSE 80; PULSE 81; RESP 18; O2SAT 96; BMI 33.2
[2023-01-07] MEDS: Ketorolac Tromethamine 30 MG/ML VIAL IVPUSH (16:56)
[2023-01-07] MEDS: diphenhydrAMINE HCL 50 MG/ML VIAL 25 MG IVPUSH ×2 (16:56→19:49)
[2023-01-07 19:54] VITALS: BP 173/91; PULSE 90; RESP 16; O2SAT 99
== END 2023-01-07 20:47 | disposition home or self-care (01) ==
PROVIDERS: Emergency Provider Internal Medicine
DX: G24.9 Dystonia, unspecified (principal); R68.84 Jaw pain; I10 Essential (primary) hypertension; Z79.899 Other long term (current) drug therapy
CPT/HCPCS: 70110; 70486; 96374; 96375; 96376; 99284; J1200; J1885

== ENCOUNTER 2025-01-01 22:37 | Emergency (ER) | payer MEDICARE, MEDICAID, SELFPAY ==
--- NOTE | 2025-01-01 23:02 | ECG_ITS ---
Test Reason : MED CLEARANCE Blood Pressure : */* mmHG Vent. Rate : 59 BPM Atrial Rate : 59 BPM P-R Int : 164 ms QRS Dur : 88 ms QT Int : 418 ms P-R-T Axes : 18 7 26 degrees QTcB Int : 413 ms Sinus bradycardia Otherwise normal ECG When compared with ECG of 30-Dec-2022 06:40, No significant change was found Referred By: Generic ED Physician Electronically Signed By: NOEMY SHER MD
[2025-01-01 23:03] VITALS: BP 120/84; PULSE 71; O2SAT 99; BMI 15.2
[2025-01-01 23:41] LABS: MANUAL DIFF FLAG NO
[2025-01-01 23:53] VITALS: BP 123/78; PULSE 57; RESP 16; TEMP 36.4; O2SAT 100
[2025-01-02] VITALS (8 sets, daily range): BP systolic 91–111; BP diastolic 52–58; PULSE 47–67; RESP 14–20; TEMP 36.4–36.6; O2SAT 97–100
[2025-01-02 00:08] LABS: Acetaminophen LAB < 3 mcg/mL (<30); Alanine Aminotransferase 45 U/L (0-40); Albumin Level 4.3 g/dL (3.5-5.0); Alkaline Phosphatase 84 U/L (39-117); Anion Gap 11 (12-20); Aspartate Amino Transferase 48 U/L (5-37); Bilirubin Total 0.4 mg/dL (0.0-1.0); Blood Urea Nitrogen 20 mg/dL (9-16); Calcium 8.6 mg/dL (8.4-10.2); Carbon Dioxide 25 mmol/L (22-29); Chloride 105 mmol/L (96-108); Creatinine Clr Calc Pharmacy 76.6; Estimated Glomerular Filt Rate > 60; Ethanol < 10 mg/dL; Glucose Random 151 mg/dL (60-115); Potassium 4.3 mmol/L (3.3-5.1); Salicylate < 5.0 mg/dL (15-30); Sodium 137 mmol/L (135-145)
[2025-01-02 00:22] LABS: Basophils Percent Auto 0.4 % (0-2); Eosinophils Absolute Auto 0.1 X10*3/uL (0.0-0.4); Eosinophils Percent Auto 1.5 % (0-4); Hematocrit 34.9 % (42.0-52.0); Hemoglobin 11.8 g/dl (14.0-18.0); Imm Gran Abs Auto 0.02 X10*3/uL (0.00-0.03); Imm Gran Pct Auto 0.2 % (0.0-0.4); Lymphocytes Absolute Auto 2.7 X10*3/uL (1.2-4.9); Lymphocytes Percent Auto 31.2 % (20-40); Mean Corpuscular HGB Conc 33.8 g/dl (31.0-36.0); Mean Corpuscular Hemoglobin 28.4 pg (27.0-33.0); Mean Corpuscular Volume 84.1 fL (80.0-98.0); Mean Platelet Volume 9.9 fL (9.4-12.4); Monocytes Absolute Auto 0.7 X10*3/uL (0.1-1.2); Monocytes Percent Auto 8.6 % (2-11); Neutrophils Percent Auto 58.1 % (45-73); Platelet Count 182 X10*3/uL (160-400); Red Blood Count 4.15 X10*6/uL (4.60-5.80); Red Cell Distribution Width 13.1 % (11.0-16.0); White Blood Count 8.6 X10*3/uL (4.8-10.8)
--- NOTE | 2025-01-02 00:45 | PC.NURSE ---
Late entry: PT brought in via ems for SI statements. [place] on [place], ems called to scene. Pt endoring crack usage and stated he was trying to get to [place]. EMS reports pt exhibiting paranoia and made vague SI statements.When EMS told pt he was going to go to [facility] pt reportedly jumped out of the truck. State police were able to get pt back into the truck and he was brought to [facility] for evaluation. On arrival be notably agitated and having period of drowsiness stating he just want to go to sleep. Security called to bedside for ion exchange operator. pt initally being resistant to the process. provider Pa aware that pt reports he took 2-3 clonidine pills in effort to get some rest- not to overdose. Pa declined need to call poison control. Pt stable. plan of cre ongoing
--- NOTE | 2025-01-02 01:11 | MHC.EDTECH ---
This tech took over care of pt [id number],patient was changed into crisis attire, security secured belongings prior to my arrival, T/W completed belongings list,locked in [employer] SHE[employer] #1
--- NOTE | 2025-01-02 01:43 | ED_ITS ---
HPI - General Adult General Chief complaint: Psychiatric Symptoms Stated complaint: SI / possible drug intake Time Seen by Provider: 01/01/25 23:02 Source: patient, RN notes reviewed and old records reviewed Mode of arrival: EMS Limitations: no limitations History of Present Illness ED Provider: Sam PEREIRA narrative: 39-year-old male presents for evaluation depression with suicidal ideation. Patient reports that he wants to end his life. He denies any specific plan. He admits to using crack prior to EMS picking him up. He also endorses taking 2 or 3 pills of clonidine a few hours prior to arrival. He denies any other ingestion. He states he took the clonidine to go to sleep. He denies any complaints or concerns at this time. He states I just want to rest and then I will talk to the care team. Related Data Home Medications ?Medication ?Instructions ?Recorded ?Confirmed buprenorphine 100 mg/0.5 mL 100 mg subcut Q4W 01/02/25 01/02/25 solution,exten.rel.subcutaneous syringe (Sublocade) clonidine HCl 0.2 mg tablet 0.2 mg PO 01/02/25 hydroxyzine pamoate 50 mg capsule 50 mg PO BEDTIME 01/02/25 01/02/25 quetiapine 100 mg tablet 100 mg PO BEDTIME 01/02/25 01/02/25 risperidone 1 mg tablet 1 mg PO BID 01/02/25 01/02/25 Allergies Allergy/AdvReac Type Severity Reaction Status Date / Time risperidone Allergy Anaphylaxis Verified 01/03/25 09:11 Review of Systems 2 Constitutional: Constitutional: Denies body ache(s), Denies chills and Denies headache(s) ENT: Denies vertigo, Denies dizziness and Denies headache(s) Cardiovascular: Cardiovascular: Denies chest pain and Denies dyspnea Respiratory: Respiratory: Denies cough and Denies dyspnea Gastrointestinal: Gastrointestinal: Denies abdominal pain, Denies nausea and Denies vomiting Musculoskeletal: Musculoskeletal: Denies back pain Integumentary/Breasts: Skin/Breast: Denies rash Neurologic: Denies vertigo, Denies dizziness and Denies headache(s) Psychiatric: Psychiatric: Reports anxiety, Reports depression, Reports mood swings, Denies homicidal ideation and Reports suicidal ideation PMFSH Social History Social History Use of substances other than those prescribed or required for medical reasons: Yes Substance Use Type: Crack/Cocaine Advance Directives: No Advance Directives Information Provided: Yes Do you have a plan to hurt others: No Plan Physical Exam ED Vital Signs: Vital Signs - 24 hr 01/02/25 20:41 01/03/25 03:24 01/03/25 11:49 Temperature 97.7 F 97.6 F 98.9 F Pulse Rate 67 65 66 Respiratory Rate 18 Blood Pressure 111/58 L 114/60 142/82 H Pulse Oximetry 99 100 100 Oxygen Delivery Method Room Air Room Air 01/03/25 11:55 Temperature Pulse Rate Respiratory Rate Blood Pressure 142/82 H Pulse Oximetry Oxygen Delivery Method BMI result Body Mass Index 25.1 Const Other: Patient is lethargic but arousable and answers my questions appropriately. General: healthy appearing, no acute distress, alert and awake Nutritional Appearance: well nourished Orientation/consciousness: patient oriented x3 HENMT Head: Yes normocephalic and Yes atraumatic Eyes Eyelids: Yes eyelids normal Conjunctivae: conjunctivae normal Sclerae: sclerae normal Corneas: corneas normal Pupils: Equal, round and reactive pupils present EOM: EOMs intact bilaterally Neck Neck: Yes full ROM Resp Effort & Inspection: normal respiratory effort, able to speak in complete sentences and not labored Skin General skin exam: elasticity normal Neuro General: patient oriented x3 Cranial nerves: Yes Equal, round and reactive pupils present and Yes Bilaterally intact EOM present Cognition (Neuro): normal cognition Extrem Other: Moving all extremities well without any obvious deformities Course Reevaluation(s) Reevaluation #1: observation continues, the patient remains mildly hypotensive blood pressure most recently 89 year over V2. There was no alteration mental status. He does not complain of lightheadedness or dizziness Time: 03:36 Reevaluation #2: Time: 09:31 Date: 01/02/25 Provider: Hayde Dsouza CNP Patient in physician observation for psychiatric evaluation.? No acute events reported overnight. No current complaints. VS stable, mild asymptomatic hypotension 99/57.? Patient is pending CARE team evaluation. Will continue to monitor. Reevaluation #3: Time: 11:07 Date: 01/02/25 Provider: Oliver Lerma MD Patient in physician observation for psychiatric evaluation.? No acute events reported overnight. No current complaints. VS stable.? Patient is in bed search status/pending CARE team evaluation. Will continue to monitor. Medications Administered Generic Name Dose Route Start Last Admin Trade Name Freq PRN Reason Stop Dose Admin Hydroxyzine HCl 50 mg 01/02/25 21:00 01/02/25 20:29 Hydroxyzine Hcl 50 Mg Tablet PO 50 mg BEDTIME IVIS Administration Loperamide HCl 2 mg 01/02/25 20:02 01/02/25 20:29 Loperamide Hcl 2 Mg Capsule PO 2 mg QID PRN Administration Diarrhea Quetiapine Fumarate 100 mg 01/02/25 21:00 01/02/25 20:29 Quetiapine Fumarate 100 Mg Tablet PO 100 mg BEDTIME IVIS Administration Risperidone 1 mg 01/02/25 21:00 01/03/25 09:09 Risperidone 1 Mg Tablet PO Not Given BID IVIS Discontinued Medications Generic Name Dose Route Start Last Admin Trade Name Freq PRN Reason Stop Dose Admin Buprenorphine/Naloxone 1 film 01/02/25 20:02 01/02/25 20:29 Buprenorphine/Naloxone 8/2 Mg Film SUBLINGUAL 01/02/25 20:03 1 film ONCE ONE Administration Clonidine HCl 0.2 mg 01/03/25 09:39 01/03/25 11:55 Clonidine Hcl 0.2 Mg Tablet PO 01/03/25 09:40 0.2 mg BID ONE Administration Protocol Medical Decision Making Medical Decision Making [facility] Narrative: 39-year-old male presents for evaluation depression with suicidal ideation. He admits to substance abuse with cocaine. He took a maximum of 0.6 mg of clonidine and was she reports she is in attempt to go to sleep. We will have to closely monitor his blood pressure for hypotension and significant bradycardia due to the relatively large dose of clonidine. Plan for basic labs, EKG, tox screen and likely care team consult once cleared Differential Diagnosis Differential Diagnoses: The differential diagnosis associated with the presentation includes Depression Substance abuse Overdose Suicidal ideation Patient declined to go with the ambulance when they arived, he will be discharged at this time. Patient is not expressing active suicidal ideation. Plan: Discharge to home with PCP follow up Return precautions given Lab Data [facility] Lab Attestation statement: I reviewed the patient's lab results. no significant leukocytosis. The patient has a mild anemia with a hemoglobin of 11.8 and hematocrit of 34.9. Normal platelet count. No significant electrolyte abnormalities. A BUN of 20 with a normal creatinine of 0.84. Random glucose of 151 01/01/25 23:38 01/01/25 23:38 Labs: Lab Results 01/01/25 01/02/25 Range/Units 23:38 08:42 WBC 8.6 (4.8-10.8) X10*3/uL RBC 4.15 L (4.60-5.80) X10*6/uL Hgb 11.8 L (14.0-18.0) g/dl Hct 34.9 L (42.0-52.0) % MCV 84.1 (80.0-98.0) fL MCH 28.4 (27.0-33.0) pg MCHC 33.8 (31.0-36.0) g/dl RDW 13.1 (11.0-16.0) % Plt Count 182 D (160-400) X10*3/uL MPV 9.9 (9.4-12.4) fL Immature Gran % (Auto) 0.2 (0.0-0.4) % Neut % (Auto) 58.1 (45-73) % Lymph % (Auto) 31.2 (20-40) % [place] % (Auto) 8.6 (2-11) % Eos % (Auto) 1.5 (0-4) % Baso % (Auto) 0.4 (0-2) % Lymph # (Auto) 2.7 (1.2-4.9) X10*3/uL [place] # (Auto) 0.7 (0.1-1.2) X10*3/uL Eos # (Auto) 0.1 (0.0-0.4) X10*3/uL Baso # (Auto) 0.0 (0.0-0.2) X10*3/uL Abs Immat Gran (auto) 0.02 (0.00-0.03) X10*3/uL Absolute Neuts (auto) 5.0 (2.0-8.3) x10*3/uL Absolute Nucleated RBC 0.000 (0.0-0.012) X10*3/uL Nucleated RBC % (auto) 0.0 (0.0-0.2) /100WBC Sodium 137 (135-145) mmol/L Potassium 4.3 (3.3-5.1) mmol/L Chloride 105 (96-108) mmol/L Carbon Dioxide 25 (22-29) mmol/L Anion Gap 11 L (12-20) BUN 20 H (9-16) mg/dL Creatinine 0.84 (0.5-1.4) mg/dL Estim Creat Clear Calc 76.6 Estimated GFR > 60 Random Glucose 151 H (60-115) mg/dL Calcium 8.6 D (8.4-10.2) mg/dL Total Bilirubin 0.4 (0.0-1.0) mg/dL AST 48 H (5-37) U/L ALT 45 H (0-40) U/L Alkaline Phosphatase 84 (39-117) U/L Total Protein 7.0 (6.5-8.0) g/dL Albumin 4.3 (3.5-5.0) g/dL Urine Color Yellow Urine Appearance Clear Urine pH 5.5 (5.0-9.0) Ur Specific [place] >= 1.030 H (1.005-1.025) Urine Protein Negative (Neg-Trace) mg/dL Urine Glucose (UA) Negative (Negative) mg/dL Urine Ketones Negative (Negative) mg/dL Urine Blood Negative (Negative) Urine Nitrite Negative (Negative) Ur Leukocyte Esterase Negative (Negative) Salicylates < 5.0 L (15-30) mg/dL Urine Opiates Screen Not Detected (Not Detect) Ur Buprenorphine Scrn Positive H (Not Detect) ng/mL Ur Oxycodone Screen Not Detected (Not Detect) ng/mL Urine Methadone Screen Not Detected (Not Detect) ng/mL Urine Fentanyl Screen Not Detected (Not Detect) Acetaminophen < 3 (<30) mcg/mL Ur Barbiturates Screen Not Detected (Not Detect) Ur Phencyclidine Scrn Not Detected (Not Detect) Ur Amphetamines Screen Not Detected (Not Detect) U Benzodiazepines Scrn Not Detected (Not Detect) Urine Cocaine Screen POSITIVE H (Not Detect) U Marijuana (THC) Screen Not Detected (Not Detect) Ethyl Alcohol < 10 mg/dL Discharge Plan Discharge Clinical Impression: Depression, Suicidal ideation Patient Disposition: Home, Self-Care Transfer Details: TO [facility] [address] [facility] Instructions: Depression (ED) Prescriptions: No Action hydroxyzine pamoate 50 mg capsule 50 mg PO BEDTIME quetiapine 100 mg tablet 100 mg PO BEDTIME clonidine HCl 0.2 mg tablet 0.2 mg PO risperidone 1 mg tablet 1 mg PO BID Sublocade 100 mg/0.5 mL solution, extended rel syringe 100 mg SUBCUT Q4W Interventions: [place]-Suicide Risk Severity Scale Last Done: 01/01/25 23:15 Print Language: Indonesian
--- NOTE | 2025-01-02 06:39 | ECG_ITS ---
Test Reason : ANNI Blood Pressure : */* mmHG Vent. Rate : 47 BPM Atrial Rate : 47 BPM P-R Int : 172 ms QRS Dur : 80 ms QT Int : 500 ms P-R-T Axes : 13 51 35 degrees QTcB Int : 442 ms Sinus bradycardia Nonspecific T wave abnormality Abnormal ECG When compared with ECG of 01-Jan-2025 23:10, No significant change was found Referred By: Generic ED Physician Electronically Signed By: NOEMY SHER MD
--- NOTE | 2025-01-02 07:11 | PC.NURSE ---
medications in sealed bag and dropped off pharmacy. Paperwork in chart
[2025-01-02 08:50] LABS: Appearance Urine Clear; Color Urine Yellow; Glucose Urine UA Negative (Negative); Leukocyte Esterase Urine Negative (Negative); Nitrite Urine Negative (Negative); PH 5.5 (5.0-9.0); Specific Gravity - Urine >= 1.030 (1.005-1.025); Urine Blood Negative (Negative); Urine Ketones Negative (Negative); Urine Protein Negative (Neg-Trace)
[2025-01-02 09:06] LABS: Amphetamine Screen Urine Not Detected (Not Detect); Barbiturates, Urine Not Detected (Not Detect); Benzodiazepines Screen Urine Not Detected (Not Detect); Buprenorphine Scr Positive (Not Detect); Cannabinoid Screen Urine Not Detected (Not Detect); Cocaine Screen Urine POSITIVE (Not Detect); Fentanyl, urine Not Detected (Not Detect); Methadone Screen, Urine Not Detected (Not Detect); Opiate Screen Urine Not Detected (Not Detect); Oxycodone Screen Urine Not Detected (Not Detect); Phencyclidine Screen Urine Not Detected (Not Detect)
--- NOTE | 2025-01-02 11:45 | PC.NURSE ---
Pt moved from ED 16H to 2, calm and cooperative, offering no complaints to this RN, currently resting in bed, pending CARE team eval
[2025-01-02] MEDS: QUEtiapine Fumarate 100 MG TABLET PO (20:29)
[2025-01-02] MEDS: Buprenorphine/Naloxone 8/2 mg FILM 1 FILM SUBLINGUAL (20:29)
[2025-01-02] MEDS: hydrOXYzine HCL 50 MG TABLET PO (20:29)
[2025-01-02] MEDS: Loperamide HCl 2 MG CAPSULE PO (20:29)
--- NOTE | 2025-01-02 21:00 | PC.NURSE ---
MD Dueñas aware of refusal
--- NOTE | 2025-01-03 03:17 | MHC.EDTECH ---
This staff observed the pt in 2 cleaning his room and requesting a broom to clean the floor. This staff brought a broom and trash basket in addition to another staff member to help clean the room. The patient became upset because he could not use the broom himself in addition to this staff taking a tray full of trash and empty cups and put it into the trash. Before entering the room the patient also requested the tv remote and again became loud when additional staff was reminded that patients are not allowed to have the remote themselves. Patient then asked for soda and came to the nurses station with a swain pitcher which as a rule is not allowed in the POD. The patient accused this staff of triggering him. Patient was approached by the RN and vitals allowed to be taken to determine how upset this staff made him. The pt shortly after appeared to calm down and returned to his room 2 and turned the light off. The swain pitcher remains in his room as not to further escalate the situation and trigger a violent patient in 6. RN is aware.
[2025-01-03 03:24] VITALS: BP 114/60; PULSE 65; RESP 18; TEMP 36.4; O2SAT 100
--- NOTE | 2025-01-03 03:25 | PC.NURSE ---
pt activity increased, cleaning bed with lights on. came out of room looking for broom. staff obliged. pt increasing in agitation, protesting rules about keeping remote and broom and what trash we were throwing out in his room stating he has ...OCD and organized it perfectly. soon after pt came out with swain pitcher asking for teagan naman. item present prior to this shift. staff informed him this item is not allowed. pt became more agitated and speaking rapidly about previously being allowed to have the cup, he is not suicidal, and that he is surrounded by suicidal patients. allowed staff to measure vitals stating I want to see how high my pressure is now that she worked me up. VS WNL. patient grew impatient near end of vitals measurement as he appeared more restless and exhaling loudly/muttering. patient given cheesesticks per request. patient informed this nurse that he will return to room until morning. we staff deemed that further prompting would escalate this situation and patient behavior and wake other patients, namely the violent patient in 6. at 0345 patient is sitting calmly in bed eating.
--- NOTE | 2025-01-03 08:30 | PC.NURSE ---
pt is awake and alert, he is calm and cooperative and interacting appropriately with staff. he has tolerated his meal tray and offers no complaint. bed search is ongoing.
--- NOTE | 2025-01-03 09:10 | PC.NURSE ---
pt reports he does not take risperidone due to a previous allergic reaction. med was withheld.
--- NOTE | 2025-01-03 10:32 | PC.NURSE ---
pt has been accepted at [facility], after initially being reluctant pt does agree to this plan. marzena mayorga was involved and the plan is if patient changes his mind regarding this admission he will be discharged.
--- NOTE | 2025-01-03 10:57 | MHC.CARE ---
Patient has been accepted to [facility] located @ [address] [place] [address]- ETA 2pm. Ambulance sisal picker time 1230pm austin Zartae. N2N is not needed. Care Team working on the section now. Accepting provider is Dr. Shay. 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
[2025-01-03 11:43] VITALS: BMI 25.1
[2025-01-03 11:49] VITALS: BP 142/82; PULSE 66; RESP 18; TEMP 37.2; O2SAT 100
[2025-01-03 11:55] VITALS: BP 142/82
[2025-01-03] MEDS: cloNIDine HCL 0.2 MG TABLET PO (11:55)
--- NOTE | 2025-01-03 13:14 | PC.NURSE ---
pt is agitated, refusing to go to inpatient psychiatric accepted facility. provider dr foley notified. pt is dishcarged, given back all belongings and medications, provided with discharge paperwork. No IVs present. pt ambulatory independently w/ steady gait/balance, aa&ox4, speaking clearly in full sentences.
== END 2025-01-03 13:18 | disposition home or self-care (01) ==
PROVIDERS: Emergency Provider Emergency Medicine
DX: F32.A Depression, unspecified (principal); R45.851 Suicidal ideations; F14.90 Cocaine use, unspecified, uncomplicated; Z79.899 Other long term (current) drug therapy
CPT/HCPCS: 36415; 80053; 80143; 80179; 80307; 81003; 85025; 93005; 99285; S9485

== ENCOUNTER → 2025-01-01 23:02 | Outpatient (BNV) | payer MEDICAID, SELFPAY | PROVIDERS: Emergency Provider Emergency Medicine; Visit Provider Internal Medicine Cardiovascular Disease | DX: R00.1 Bradycardia, unspecified (principal) | CPT/HCPCS: 93010 ==

== ENCOUNTER → 2025-01-02 06:39 | Outpatient (BNV) | payer MEDICAID, SELFPAY | PROVIDERS: Emergency Provider Emergency Medicine; Visit Provider Internal Medicine Cardiovascular Disease | DX: R00.1 Bradycardia, unspecified (principal) | CPT/HCPCS: 93010 ==

== ENCOUNTER 2025-01-04 02:41 | Emergency (ER) | payer MEDICARE, MEDICAID, SELFPAY ==
--- NOTE | 2025-01-04 02:50 | ECG_ITS ---
Test Reason : SUBSTANCE ABUSE Blood Pressure : */* mmHG Vent. Rate : 57 BPM Atrial Rate : 57 BPM P-R Int : 184 ms QRS Dur : 90 ms QT Int : 406 ms P-R-T Axes : 13 12 12 degrees QTcB Int : 395 ms Sinus bradycardia Otherwise normal ECG When compared with ECG of 02-Jan-2025 06:46, No significant change was found Referred By: Generic ED Physician Electronically Signed By: Joesph Kenney
[2025-01-04 02:52] VITALS: BP 125/87; BP 132/92; PULSE 64; PULSE 68; RESP 20; TEMP 37.1; O2SAT 98; BMI 32.1
--- NOTE | 2025-01-04 03:06 | PC.NURSE ---
Patient changed over into behavioral health attire in presence of security and quality technician, patient belongings secured in [place], shelf #2.
--- NOTE | 2025-01-04 03:10 | ED_ITS ---
HPI - General Adult General Chief complaint: ETOH/Substance Use Stated complaint: SUBSTANCE ABUSE Time Seen by Provider: 01/04/25 03:10 History of Present Illness ED Provider: Jimbo PEREIRA narrative: The patient is a 39-year-old male with a history of substance use disorder and previous emergency room visits for behavioral health evaluations. The patient had presented to the emergency room 2 days ago on January 02 complaining of feeling suicidal and depressed. He was medically cleared and evaluated by the care team. Yesterday afternoon he was told that he could be admitted to a facility in [place] has a dual diagnosis admission. The patient was concerned that [place] as far away and did not want to go to [place]. Since he was not suicidal and not on a section 12 at that time he preferred to be discharged rather than go to [place]. He was discharged about 14 hours ago. The patient used cocaine since discharge and had 2nd thoughts about his decision not to go to [place]. He has changed his mind. He went to a police station this morning where an ambulance was called and he was brought here. He now regrets having left the emergency room earlier and would like to be seen again by the care team for possible psychiatric placement as well as substance use treatment. He has had intermittent suicidal thoughts. He says he has not done anything to harm himself. He says that he took ?a couple of pills? since leaving the emergency room 14 hours ago but he did not do this in overdose. He did this to get high. He does not have any medical complaints. He says that he feels hungry and and also that he would like to get some sleep. Related Data Home Medications ?Medication ?Instructions ?Recorded ?Confirmed buprenorphine 100 mg/0.5 mL 100 mg subcut Q4W 01/02/25 01/02/25 solution,exten.rel.subcutaneous syringe (Sublocade) clonidine HCl 0.2 mg tablet 0.2 mg PO 01/02/25 hydroxyzine pamoate 50 mg capsule 50 mg PO BEDTIME 01/02/25 01/02/25 quetiapine 100 mg tablet 100 mg PO BEDTIME 01/02/25 01/02/25 risperidone 1 mg tablet 1 mg PO BID 01/02/25 01/02/25 Allergies Allergy/AdvReac Type Severity Reaction Status Date / Time haloperidol [From Haldol] Allergy Unknown Verified 01/04/25 03:05 risperidone Allergy Anaphylaxis Verified 01/03/25 09:11 Review of Systems 2 Review of Systems: Yes all other systems are reviewed and are negative [facility] Social History Social History Alcohol intake: former Smoked in Last 30 Days: Yes Substance Use Type: Crack/Cocaine Last Used Substance: Hours (ago) Advance Directives: No Advance Directives Information Provided: Yes Physical Exam ED Vital Signs: Vital Signs - 24 hr 01/04/25 02:52 01/04/25 07:27 01/04/25 10:28 Temperature 98.8 F 97.5 F 97.3 F Pulse Rate 64 57 60 Respiratory Rate 20 16 20 Blood Pressure 125/87 95/44 L 110/58 L Pulse Oximetry 98 98 99 Oxygen Delivery Method Room Air Room Air Room Air 01/04/25 14:36 01/04/25 15:49 Temperature 97.3 F Pulse Rate 65 65 Respiratory Rate 18 18 Blood Pressure 161/80 H 161/80 H Pulse Oximetry 99 99 Oxygen Delivery Method Room Air Room Air BMI result Body Mass Index 32.1 Const Other: The patient is a thin 39-year-old male who was sleeping at the time that I 1st approached him. He awoke easily to a normal mental status. He looks somewhat chronically ill but not acutely ill. Orientation/consciousness: patient oriented x3 HENMT Other: Face is symmetrical. Mucous membranes moist. Eyes General: appearance normal, both eyes and all related structures Sclerae: sclerae normal Neck Neck: Yes normal visual inspection, Yes full ROM and Yes no lymphadenopathy Resp Effort & Inspection: normal respiratory effort Auscultation: clear to auscultation bilaterally Cardio Rate: regular rate Rhythm: regular rhythm Heart sounds: S1 normal heart sound present, S2 normal heart sound present and Murmur heart sound present (No murmur heard) GI Other: Abdomen is soft and nontender Skin Other: Skin is pale and dry. Neuro General: patient oriented x3, gait normal, tone normal, moves all extremities, no focal motor deficits and CN's II-XI intact bilaterally Extrem Other: No peripheral edema Medications Administered Discontinued Medications Generic Name Dose Route Start Last Admin Trade Name Freq PRN Reason Stop Dose Admin Lorazepam 2 mg 01/04/25 10:47 01/04/25 10:51 Lorazepam 1 Mg Tablet PO 01/04/25 10:48 2 mg ONCE ONE Administration Medical Decision Making Medical Decision Making MDM Narrative: The patient is a 39-year-old male with a history of substance use disorder who represents to the emergency room complaining of suicidal ideation and who regrets his decision to leave the hospital yesterday. He says at this point that he would like inpatient treatment even if it means going to a facility far away like [place]. The patient is medically clear for evaluation by the care team. The patient will be placed in physician observation. Lab Data 01/04/25 03:24 01/04/25 03:24 Labs: Lab Results 01/04/25 01/04/25 Range/Units 03:24 07:22 WBC 7.4 (4.8-10.8) X10*3/uL RBC 4.24 L (4.60-5.80) X10*6/uL Hgb 12.2 L (14.0-18.0) g/dl Hct 35.7 L (42.0-52.0) % MCV 84.2 (80.0-98.0) fL MCH 28.8 (27.0-33.0) pg MCHC 34.2 (31.0-36.0) g/dl RDW 12.8 (11.0-16.0) % Plt Count 174 (160-400) X10*3/uL MPV 10.1 (9.4-12.4) fL Absolute Nucleated RBC 0.000 (0.0-0.012) X10*3/uL Nucleated RBC % (auto) 0.0 (0.0-0.2) /100WBC Sodium 137 (135-145) mmol/L Potassium 4.2 (3.3-5.1) mmol/L Chloride 102 (96-108) mmol/L Carbon Dioxide 25 (22-29) mmol/L Anion Gap 14 (12-20) BUN 20 H (9-16) mg/dL Creatinine 0.98 (0.5-1.4) mg/dL Estim Creat Clear Calc 114.8 Estimated GFR > 60 Random Glucose 137 H (60-115) mg/dL Calcium 8.6 (8.4-10.2) mg/dL Troponin I High Sens < 2.7 (<3.5-35.0) ng/L Urine Opiates Screen Not Detected (Not Detect) Ur Buprenorphine Scrn Positive H (Not Detect) ng/mL Ur Oxycodone Screen Not Detected (Not Detect) ng/mL Urine Methadone Screen Not Detected (Not Detect) ng/mL Urine Fentanyl Screen Not Detected (Not Detect) Ur Barbiturates Screen Not Detected (Not Detect) Ur Phencyclidine Scrn Not Detected (Not Detect) Ur Amphetamines Screen Not Detected (Not Detect) U Benzodiazepines Scrn Not Detected (Not Detect) Urine Cocaine Screen POSITIVE H (Not Detect) U Marijuana (THC) Screen Not Detected (Not Detect) Ethyl Alcohol < 10 mg/dL Discharge Plan Discharge Clinical Impression: Depression, Substance use disorder Patient Disposition: Xfer Other Prescriptions: No Action hydroxyzine pamoate 50 mg capsule 50 mg PO BEDTIME quetiapine 100 mg tablet 100 mg PO BEDTIME clonidine HCl 0.2 mg tablet 0.2 mg PO risperidone 1 mg tablet 1 mg PO BID Sublocade 100 mg/0.5 mL solution, extended rel syringe 100 mg SUBCUT Q4W Interventions: ED Discharge Assessment Last Done: 01/04/25 15:49 Discharge Date/Time: 01/04/25 15:50 Print Language: Hebrew
[2025-01-04 03:18] VITALS: PULSE 64
--- NOTE | 2025-01-04 03:22 | PC.NURSE ---
1:1 sitter at bedside d/t intermittent SI with no plan, patient requested and provided with teagan naman, saltine crackers, tolerated well. Patient currently offers no complaints.
[2025-01-04 03:41] LABS: Hematocrit 35.7 % (42.0-52.0); Hemoglobin 12.2 g/dl (14.0-18.0); Mean Corpuscular HGB Conc 34.2 g/dl (31.0-36.0); Mean Corpuscular Hemoglobin 28.8 pg (27.0-33.0); Mean Corpuscular Volume 84.2 fL (80.0-98.0); Mean Platelet Volume 10.1 fL (9.4-12.4); Platelet Count 174 X10*3/uL (160-400); Red Blood Count 4.24 X10*6/uL (4.60-5.80); Red Cell Distribution Width 12.8 % (11.0-16.0); White Blood Count 7.4 X10*3/uL (4.8-10.8)
[2025-01-04 03:53] LABS: Anion Gap 14 (12-20); Blood Urea Nitrogen 20 mg/dL (9-16); Calcium 8.6 mg/dL (8.4-10.2); Carbon Dioxide 25 mmol/L (22-29); Chloride 102 mmol/L (96-108); Creatinine Clr Calc Pharmacy 114.8; Estimated Glomerular Filt Rate > 60; Ethanol < 10 mg/dL; Glucose Random 137 mg/dL (60-115); Potassium 4.2 mmol/L (3.3-5.1); Sodium 137 mmol/L (135-145)
[2025-01-04 04:02] LABS: Troponin-I High Sensitivity < 2.7 ng/L (<3.5-35.0)
[2025-01-04 07:27] VITALS: BP 95/44; PULSE 57; RESP 16; TEMP 36.4; O2SAT 98
--- NOTE | 2025-01-04 07:29 | PC.NURSE ---
patient a&ox3, vss, pt awake eating breakfast, ciwa 0- states he isnt a drinker, rr equal/non labored, pt awaiting care team eval, call price within reach, plan of care ongoing
[2025-01-04 07:38] LABS: Amphetamine Screen Urine Not Detected (Not Detect); Barbiturates, Urine Not Detected (Not Detect); Benzodiazepines Screen Urine Not Detected (Not Detect); Buprenorphine Scr Positive (Not Detect); Cannabinoid Screen Urine Not Detected (Not Detect); Cocaine Screen Urine POSITIVE (Not Detect); Fentanyl, urine Not Detected (Not Detect); Methadone Screen, Urine Not Detected (Not Detect); Opiate Screen Urine Not Detected (Not Detect); Oxycodone Screen Urine Not Detected (Not Detect); Phencyclidine Screen Urine Not Detected (Not Detect)
[2025-01-04 10:28] VITALS: BP 110/58; PULSE 60; RESP 20; TEMP 36.3; O2SAT 99
[2025-01-04] MEDS: LORazepam 1 MG TABLET 2 MG PO (10:51)
--- NOTE | 2025-01-04 10:51 | PC.NURSE ---
patient became very agitated when he was told by our charge nurse he needed to be moved into the [facility], security was called to assist. pt requested medication to help him relax, pt was given ativan per his request.
--- NOTE | 2025-01-04 10:53 | MHC.CARE ---
Pt does not meet the criteria for a higher level of care and will be referred to the recovery team for a detox referral. Provider in agreement. Pt cleared by CARE team.
--- NOTE | 2025-01-04 11:50 | MHC.RECOVRN ---
T/W met with pt after received requst from Care Team for ATS bed search Pt reports he is smoking crack regularly. When asked he reports a lot . Reports he drinks occasionally but it is not a regular thing. He has cocaine and buprenorphine in his tox screen. When asked about the buprenorphine he reports he has not been to [facility] since September 2024 and is buying it off the street although the med rec revealed a sublocade injection a few days ago. T/W e mailed referral to [facility] and [facility] per pt's request and agreement. Awaiting reply T/W available PRN.
--- NOTE | 2025-01-04 13:48 | PC.NURSE ---
PT HAS BEEN CLEARED BY CARE TEAM, AIRPLANE REFUELER INVOLVED IN GETTING PATIENT TO DETOX, PT IS COOPERATIVE CURRENTLY. LUNCH PROVIDED
[2025-01-04 14:36] VITALS: BP 161/80; PULSE 65; RESP 18; O2SAT 99
--- NOTE | 2025-01-04 14:58 | MHC.RECOVRN ---
Addendum entered by Yvette Price RN 01/04/25 15:54: When lyft arrived pt had become baligerant and was getting escorted from hospital property by security. Pt did not get in lyft ride for detox. Detox was updated and I consulted with Charissa Lucero NP and it was suggested if pt. comes back to ED for detox he should seek walk in at [facility]. Original Note: T/W was able to connect pt to [facility] and he was accepted. Lyft ride was arranged for pt.
--- NOTE | 2025-01-04 15:15 | PC.NURSE ---
Pt was given his belongings in preparation for discharge to [employer] ride to go to detox as arranged by recovery Team, Yvette NOLAND. He was demanding and verbally rude stating he was not going to take the ride until his brother arrived with cigarettes for him. He was loud and intrusive to staff. Staff had just redirected this patient out of the refrigerator and cabinets. Security offered to assist in obtaining cigarettes to deescalate his behavior. Initially he agrees and went to the bathroom to change. He was checked on by security as he was locked in the bathroom for an extended period of time, he became more agitated and was eventually escorted out by security.
[2025-01-04 15:49] VITALS: BP 161/80; PULSE 65; RESP 18; TEMP 36.3; O2SAT 99
== END 2025-01-04 15:50 | disposition other institution (70) ==
PROVIDERS: Emergency Provider Emergency Medicine
DX: F33.1 Major depressive disorder, recurrent, moderate (principal); R45.851 Suicidal ideations; R00.1 Bradycardia, unspecified; F14.10 Cocaine abuse, uncomplicated; Z51.81 Encounter for therapeutic drug level monitoring; Z79.899 Other long term (current) drug therapy
CPT/HCPCS: 36415; 80048; 80307; 84484; 85027; 93005; 99285; S9485

== ENCOUNTER → 2025-01-04 02:50 | Outpatient (BNV) | payer MEDICAID, SELFPAY | PROVIDERS: Emergency Provider Emergency Medicine; Visit Provider Internal Medicine Cardiovascular Disease | DX: R00.1 Bradycardia, unspecified (principal) | CPT/HCPCS: 93010 ==

== ENCOUNTER 2025-01-07 00:23 | Inpatient (IN) | payer MEDICARE, MEDICAID, SELFPAY ==
[2025-01-07] VITALS (7 sets, daily range): BP systolic 100–176; BP diastolic 52–105; PULSE 53–99; RESP 14–20; TEMP 36–36.6; O2SAT 97–100; BMI 28.9
--- NOTE | 2025-01-07 | ECG_ITS ---
Test Reason : MEDICATION OVERDOSE Blood Pressure : */* mmHG Vent. Rate : 48 BPM Atrial Rate : 48 BPM P-R Int : 214 ms QRS Dur : 90 ms QT Int : 464 ms P-R-T Axes : 14 39 -4 degrees QTcB Int : 414 ms Sinus bradycardia with 1st degree A-V block Nonspecific T wave abnormality Abnormal ECG When compared with ECG of 07-Jan-2025 00:48, [place] interval has increased Vent. rate has decreased by 24 bpm Inverted T waves have replaced nonspecific T wave abnormality in Inferior leads Referred By: Lorenza Soria Electronically Signed By: Joesph Kenney
--- NOTE | 2025-01-07 00:40 | PC.NURSE ---
late entry- upon triage pt waiting with this rn for security to walk pt to tire changer. pt agreeable to this . pt at time holding bottle of clonidine stated captain's assistant had take 6pills. upon security arrival to triage pt states don't fucking smile at me pt at which time opened clonidine bottle and swallowed unknown amount of medication. security at which time obtained pt belongings, pill bottle from pt hand and walked pt to tire changer room. dr tomas to triage at tis time tank charger made aware clinical coordinator made aware
--- NOTE | 2025-01-07 00:40 | ECG_ITS ---
Test Reason : MED OD Blood Pressure : */* mmHG Vent. Rate : 72 BPM Atrial Rate : 72 BPM P-R Int : 174 ms QRS Dur : 90 ms QT Int : 370 ms P-R-T Axes : 27 18 34 degrees QTcB Int : 405 ms Normal sinus rhythm Normal ECG When compared with ECG of 04-Jan-2025 03:32, No significant change was found Referred By: Lorenza Soria Electronically Signed By: Joesph Kenney
--- NOTE | 2025-01-07 00:43 | ED.OVERDOSE ---
HPI - Overdose General Chief Complaint: Overdose Stated Complaint: SI Time Seen by Provider: 01/07/25 00:34 Source: patient Mode of arrival: ambulatory Limitations: no limitations History of Present Illness ED Provider: Dr. Lorenza Soria HPI Narrative: Patient comes to the emergency room walking. Patient presents to triage tearful, reports SI, no specific plan. Patient states that prior to arriving to emergency room he is crack cocaine and he took 6 doses of clonidine. However, patient checked reporting SI but patient states that he has no intent of killing himself? When security approach the patient to check his belongings, patient open his bottle of clonidine and swallow all the pills that were in there. It is unclear how many tablets he swallow. Also, patient came in so can what, it is raining outside, patient took his hoodie off and rang it out and drank the water dripping from his hoodie Related Data Home Medications ?Medication ?Instructions ?Recorded ?Confirmed buprenorphine 100 mg/0.5 mL 100 mg subcut Q4W 01/02/25 01/07/25 solution,exten.rel.subcutaneous syringe (Sublocade) clonidine HCl 0.2 mg tablet 0.2 mg PO BID PRN Anxiety 01/02/25 01/07/25 hydroxyzine pamoate 50 mg capsule 50 mg PO BEDTIME 01/02/25 01/07/25 quetiapine 100 mg tablet 100 mg PO BEDTIME 01/02/25 01/07/25 risperidone 1 mg tablet 1 mg PO BID 01/02/25 01/07/25 buprenorphine 8 mg-naloxone 2 mg 1 film sublingual DAILY 01/07/25 01/07/25 sublingual film doxazosin 2 mg tablet 2 mg PO BEDTIME 01/07/25 01/07/25 Allergies Allergy/AdvReac Type Severity Reaction Status Date / Time haloperidol [From Haldol] Allergy Unknown Verified 01/07/25 00:33 risperidone Allergy Anaphylaxis Verified 01/07/25 00:33 Review of Systems Review of Systems: Constitutional : No Weight loss, No Fever, No Chills, No Night Sweats, No Fatigue, No Malaise ENT/Mouth : No Hearing loss, No Ear Pain, No Nasal Congestion, No Sinus Pain, No Hoarseness, No sore throat, No Rhinorrhea, No Swallowing Difficulty Eyes: No Eye Pain, No Swelling, No Redness, No Foreign Body, No Discharge, No Vision Changes Cardiovascular : No Chest Pain, No SOB, No Dyspnea on Exertion, No Orthopnea, No Edema, No Palpitations Respiratory : No Cough, No Sputum, No Wheezing, No Smoke Exposure, No Dyspnea Gastrointestinal : No Nausea, No Vomiting, No Diarrhea, No Constipation, No abdominal Pain, No Hematochezia, No Melena Genitourinary : no irregular bleeding, No Dysuria, No Urinary Frequency, No Hematuria, No Urinary Incontinence, No Urgency, No Flank Pain, No Urinary Flow Changes, No Hesitancy Musculoskeletal : No joint pain, No Myalgias, No Joint Swelling Skin : No Skin Lesions, No rash Neuro : No Weakness, No Numbness, No Paresthesias, No Loss of Consciousness, No Dizziness, No Headache Psych : patient is came complaining of suicidal ideation but at the same time he says that he is not suicidal or homicidal. Patient ingested an unknown amount of clonidine Heme/Lymph: No Bruising, No Bleeding,No Lymphadenopathy Endocrine : No Polyuria, No Polydipsia, No Temperature Intolerance PMFSH Past Medical History Medical History (Updated 01/07/25 @ 10:23 by Remi Olson DO) Cocaine abuse Depression Social History Social History Alcohol intake: former Patient Tobacco Use Status: Current everyday Tobacco user Smoked in Last 30 Days: No Use of substances other than those prescribed or required for medical reasons: Yes Substance Use Type: Crack/Cocaine Advance Directives: No Advance Directives Information Provided: Yes Do you have a plan to hurt others: No Plan Nutrition Risks: No Nutritional Risk Physical Exam Vital Signs: Vital Signs: Last Vital Signs Temp 97.8 F 01/07/25 06:05 Pulse 60 01/07/25 06:05 Resp 16 01/07/25 08:35 BP 100/52 L 01/07/25 06:05 Pulse Ox 98 01/07/25 06:05 O2 Del Method Room Air 01/07/25 06:05 BMI result Body Mass Index 28.9 Const: Other: Appearance: Alert. Oriented X3. Eyes: Pupils equal, round and reactive to light. ENT: Pharynx normal. Neck: Normal inspection. Neck supple. No lymph nodes noted. No crepitus CVS: Normal heart rate and rhythm. Pulses normal. Normal S1 and S2 Respiratory: No respiratory distress. Breath sounds normal. No Wheezing. No rales Abdomen: Soft and nontender. No rigidity. No distention. Skin: Skin warm and dry. Normal skin color. Normal skin turgor. Extremities: No lower extremity edema. No Lacerations. No Rash Neuro: Oriented X 3. No motor deficit. No sensory deficit. Moving all extremities. No slurred speech. CN 2 through 12 grossly intact Psych: tearful, angry Course Course Course Narrative: unclear if patient is SI or not. However, patient came in with a chief complaint of SI and also took an unknown amount of clonidine. Patient is on a Section 12 all of patient's labs pending patient's blood pressure will be monitored poison control called back pending Medications Administered Generic Name Dose Route Start Last Admin Trade Name Freq PRN Reason Stop Dose Admin Buprenorphine/Naloxone 1 film 01/07/25 10:30 01/07/25 10:43 Buprenorphine/Naloxone 8/2 Mg Film SUBLINGUAL 1 film DAILY IVIS Administration Risperidone 1 mg 01/07/25 10:30 01/07/25 10:43 Risperidone 1 Mg Tablet PO Not Given BID IVIS Discontinued Medications Generic Name Dose Route Start Last Admin Trade Name Freq PRN Reason Stop Dose Admin Charcoal 50 gm 01/07/25 01:11 01/07/25 01:17 Activated Charcoal 50 Gm/240 Ml Oral.Susp PO 01/07/25 01:12 50 gm ONCE ONE Administration Medical Decision Making Medical Decision Making [facility] Narrative: it has been about 1/2 hour since the patient took an unknown amount of clonidine. Patient will be given p.o. charcoal 07:11 I, Dr. Olson have take over the care of this patient, I reviewed pertinent blood work and imaging, re-evaluated the patient when appropriate. The patient has been medically cleared and has been stable overnight, we will continue to monitor anticipate psychiatric admission we will continue to monitor blood pressure and heart rate. 1022: Medical reconciliation performed, patient is a bed search Lab Data 01/07/25 01:05 01/07/25 01:05 Labs: Lab Results 01/07/25 01/07/25 Range/Units 01:05 01:13 WBC 7.2 (4.8-10.8) X10*3/uL RBC 4.71 (4.60-5.80) X10*6/uL Hgb 13.5 L (14.0-18.0) g/dl Hct 39.5 L (42.0-52.0) % MCV 83.9 (80.0-98.0) fL MCH 28.7 (27.0-33.0) pg MCHC 34.2 (31.0-36.0) g/dl RDW 12.7 (11.0-16.0) % Plt Count 200 (160-400) X10*3/uL MPV 9.5 (9.4-12.4) fL Immature Gran % (Auto) 0.3 (0.0-0.4) % Neut % (Auto) 63.8 (45-73) % Lymph % (Auto) 27.1 (20-40) % Morgan % (Auto) 7.2 (2-11) % Eos % (Auto) 1.0 (0-4) % Baso % (Auto) 0.6 (0-2) % Lymph # (Auto) 2.0 (1.2-4.9) X10*3/uL Morgan # (Auto) 0.5 (0.1-1.2) X10*3/uL Eos # (Auto) 0.1 (0.0-0.4) X10*3/uL Baso # (Auto) 0.0 (0.0-0.2) X10*3/uL Abs Immat Gran (auto) 0.02 (0.00-0.03) X10*3/uL Absolute Neuts (auto) 4.6 (2.0-8.3) x10*3/uL Absolute Nucleated RBC 0.000 (0.0-0.012) X10*3/uL Nucleated RBC % (auto) 0.0 (0.0-0.2) /100WBC Sodium 139 (135-145) mmol/L Potassium 4.4 (3.3-5.1) mmol/L Chloride 104 (96-108) mmol/L Carbon Dioxide 26 (22-29) mmol/L Anion Gap 13 (12-20) BUN 17 H (9-16) mg/dL Creatinine 0.82 (0.5-1.4) mg/dL Estim Creat Clear Calc 130.7 Estimated GFR > 60 Random Glucose 141 H (60-115) mg/dL Calcium 9.1 (8.4-10.2) mg/dL Magnesium 1.9 (1.6-2.6) mg/dL Total Bilirubin 0.4 (0.0-1.0) mg/dL Direct Bilirubin 0.1 (0.0-0.5) mg/dL AST 33 (5-37) U/L ALT 36 (0-40) U/L Alkaline Phosphatase 81 (39-117) U/L Troponin I High Sens 3.3 (<3.5-35.0) ng/L Total Protein 7.7 (6.5-8.0) g/dL Albumin 4.8 (3.5-5.0) g/dL Urine Color Yellow Urine Appearance Clear Urine pH 7.0 (5.0-9.0) Ur Specific [place] 1.020 (1.005-1.025) Urine Protein Negative (Neg-Trace) mg/dL Urine Glucose (UA) Negative (Negative) mg/dL Urine Ketones Negative (Negative) mg/dL Urine Blood Negative (Negative) Urine Nitrite Negative (Negative) Ur Leukocyte Esterase Negative (Negative) Salicylates < 5.0 L (15-30) mg/dL Urine Opiates Screen Not Detected (Not Detect) Ur Buprenorphine Scrn Positive H (Not Detect) ng/mL Ur Oxycodone Screen Not Detected (Not Detect) ng/mL Urine Methadone Screen Not Detected (Not Detect) ng/mL Urine Fentanyl Screen Not Detected (Not Detect) Acetaminophen < 3 (<30) mcg/mL Ur Barbiturates Screen Not Detected (Not Detect) Ur Phencyclidine Scrn Not Detected (Not Detect) Ur Amphetamines Screen Not Detected (Not Detect) U Benzodiazepines Scrn Not Detected (Not Detect) Urine Cocaine Screen POSITIVE H (Not Detect) U Marijuana (THC) Screen Not Detected (Not Detect) Ethyl Alcohol < 10 mg/dL Discharge Plan Discharge Clinical Impression: Clonidine overdose, Depression with suicidal ideation Patient Disposition: Admitted As Inpatient Interventions: Admission Worksheet (ED) Last Done: 01/07/25 13:28
[2025-01-07 01:10] LABS: MANUAL DIFF FLAG NO
--- NOTE | 2025-01-07 01:10 | PC.NURSE ---
Pt awake and alert, conversing in full/complete sentences, skin warm and dry and without any resp distress noted. He is NSR on the residential monitor, BP stable and other VS WNL. The pt is requesting charcoal at this time, initially did not know how many tablets he took but requested this RN count the remaining medications to determine how many 0.2mg clonidine he took after triage. RN counted 7 tablets remaining in the bottle and the patient reports that he began with 23, in total the patient took 16 0.2mg clonidine (including the 6 APPLICATION SUPPORT INTERN). RN consulted poison control and per their recommendation, pt to receive activated charcoal, assessed fro GETTERING FILAMENT MACHINE OPERATOR/Resp depression, hypotension, paradoxical hypertension, bradycardia, heart block, asystole. They are recommending that the pt have repeat labs drawn in 4 hours along with a repeat EKG. MD Soria aware of these recommendations and new orders pending. Pt remains with sitter at bedside
[2025-01-07 01:11] LABS: Basophils Percent Auto 0.6 % (0-2); Eosinophils Absolute Auto 0.1 X10*3/uL (0.0-0.4); Hematocrit 39.5 % (42.0-52.0); Hemoglobin 13.5 g/dl (14.0-18.0); Imm Gran Abs Auto 0.02 X10*3/uL (0.00-0.03); Imm Gran Pct Auto 0.3 % (0.0-0.4); Lymphocytes Percent Auto 27.1 % (20-40); Mean Corpuscular HGB Conc 34.2 g/dl (31.0-36.0); Mean Corpuscular Hemoglobin 28.7 pg (27.0-33.0); Mean Corpuscular Volume 83.9 fL (80.0-98.0); Mean Platelet Volume 9.5 fL (9.4-12.4); Monocytes Absolute Auto 0.5 X10*3/uL (0.1-1.2); Monocytes Percent Auto 7.2 % (2-11); Neutrophils Absolute Auto 4.6 x10*3/uL (2.0-8.3); Neutrophils Percent Auto 63.8 % (45-73); Platelet Count 200 X10*3/uL (160-400); Red Blood Count 4.71 X10*6/uL (4.60-5.80); Red Cell Distribution Width 12.7 % (11.0-16.0); White Blood Count 7.2 X10*3/uL (4.8-10.8)
[2025-01-07] MEDS: Activated charcoaL 50 GM/240 ML ORAL.SUSP PO (01:17)
[2025-01-07 01:30] LABS: Amphetamine Screen Urine Not Detected (Not Detect); Barbiturates, Urine Not Detected (Not Detect); Benzodiazepines Screen Urine Not Detected (Not Detect); Buprenorphine Scr Positive (Not Detect); Cannabinoid Screen Urine Not Detected (Not Detect); Cocaine Screen Urine POSITIVE (Not Detect); Fentanyl, urine Not Detected (Not Detect); Methadone Screen, Urine Not Detected (Not Detect); Opiate Screen Urine Not Detected (Not Detect); Oxycodone Screen Urine Not Detected (Not Detect); Phencyclidine Screen Urine Not Detected (Not Detect)
[2025-01-07 01:31] LABS: Alanine Aminotransferase 36 U/L (0-40); Albumin Level 4.8 g/dL (3.5-5.0); Alkaline Phosphatase 81 U/L (39-117); Anion Gap 13 (12-20); Aspartate Amino Transferase 33 U/L (5-37); Bilirubin Direct 0.1 mg/dL (0.0-0.5); Bilirubin Total 0.4 mg/dL (0.0-1.0); Blood Urea Nitrogen 17 mg/dL (9-16); Calcium 9.1 mg/dL (8.4-10.2); Carbon Dioxide 26 mmol/L (22-29); Chloride 104 mmol/L (96-108); Creatinine Clr Calc Pharmacy 130.7; Estimated Glomerular Filt Rate > 60; Ethanol < 10 mg/dL; Glucose Random 141 mg/dL (60-115); Magnesium 1.9 mg/dL (1.6-2.6); Potassium 4.4 mmol/L (3.3-5.1); Sodium 139 mmol/L (135-145); Total Protein 7.7 g/dL (6.5-8.0)
[2025-01-07 01:32] LABS: Troponin-I High Sensitivity 3.3 ng/L (<3.5-35.0)
--- NOTE | 2025-01-07 01:32 | PC.NURSE ---
Pt provided with activated charcoal per OCT. He was demanding gingerale and food and was advised to take the medication first and his beverage and food needs would be addressed. Pt reported dry mouth and oral swap dipped in water was offered but denied by the patient. He was noted to get up out of bed, remove all leads and bp cuffs and walk out of the room, he was not verbally redirectable and said he was going to the bathroom. This RN and sitter accompanied the patient to the bathroom at which point he was noted to drink water from the sink, stating i hate feeling this way . Security to the bathroom adn upon their arrival the pt voluntarily returned himself to bed 9. RN explained the importance of keeping the clinical research monitor and bp cuff in place for continuous monitoring in relation to the medications he took this evening. The pt complied, is back in bed, calm and cooperative at this time. This RN will provide patient with food and beverage upon providers okay
[2025-01-07 01:40] LABS: Acetaminophen LAB < 3 mcg/mL (<30); Salicylate < 5.0 mg/dL (15-30)
--- NOTE | 2025-01-07 06:23 | PC.NURSE ---
pt has been resting comfortably in the stretcher with eyes closed, respirations even and unlabored and without distress noted majority of the night with sitter present at bedside. The pt woke approx 1 hour ago, has been provided with food and beverage per his request. The pt was noted to have his blanket covering his face, RN to bedside to request the patient remove the blanket from his face, explaining the importance and reason of needing to see his face at all times. pt refused multiple times, yelling and cursing at staff loudly until this RN physically removed the blanket from his face and off his person. pt once again became loud; yelling and cursing at staff. Security to bedside to assist, pt calm and cooperative, agreeable to keeping blankets off of face. Pt up to restroom with patient observer per request to address his toileting and hygiene needs. Pt requesting to go to the POD, per MD Soria pt cleared to do so once repeat EKG obtained per Poison controls request/recommendation and pt agreeable at this time
--- NOTE | 2025-01-07 06:43 | PC.NURSE ---
LATE ENTRY: at 0600 this RN inquired about repeat blood work and ekg. Per MD the repeat EKG was the only thing necessary after which time the pt could be brought over to the pod while he awaiting primary care team evaluation.
--- NOTE | 2025-01-07 06:44 | PC.NURSE ---
Verbal report provided to Mariposa RN via phone. Pt is currently being walked over to the POD with patient observer and security. he is calm and cooperative
--- NOTE | 2025-01-07 06:47 | MHC.EDTECH ---
Patient came over to Pod at 0645 am calm and Cooperative .
--- NOTE | 2025-01-07 07:23 | PC.NURSE ---
Assumed care of patient at 0645, patient appears to be in no apparent distress this am, moved from ED to Pod at shift change. Pt laid down in bed, now sleeping, respirations even and unlabored. Continue plan of care for CARE team willie
[2025-01-07 07:42] LABS: Appearance Urine Clear; Color Urine Yellow; Glucose Urine UA Negative (Negative); Leukocyte Esterase Urine Negative (Negative); Nitrite Urine Negative (Negative); Urine Blood Negative (Negative); Urine Ketones Negative (Negative); Urine Protein Negative (Neg-Trace)
--- NOTE | 2025-01-07 08:33 | PC.NURSE ---
pt very demanding regarding food, i need more than what youre giving me after pt was provided with 10 sugars. Pt demanding gingerale in large cup after provided with gingerale in regular cup
--- NOTE | 2025-01-07 08:52 | PC.NURSE ---
Re; med rec this RN completed med rec by calling [facility] in [place], [place] Pt verbally verified medications with last doses Pt reports he gets his suboxone dose from [facility], verified 8/2mg
--- NOTE | 2025-01-07 09:19 | MHC.CARE ---
Pt will be an inpatient bedsearch
[2025-01-07] MEDS: Buprenorphine/Naloxone 8/2 mg FILM 1 FILM SUBLINGUAL (10:43)
--- NOTE | 2025-01-07 10:43 | PC.NURSE ---
pt refused to allow this Rn to scan bracelet for med pass
--- NOTE | 2025-01-07 15:35 | PC.ADMIT ---
Patient admitted from [facility] ED Pod to M5 and signed in on a CV which was accepted. Patient reports that he is having increased depression and anxiety related to his recent break-up and being homeless. He reports that he used crack cocaine often and that he intermittently has suicidal ideation without a plan. Patient states that before bringing himself to the ED he had taken about 5 or 6 clonidine but he was only trying to calm himself down. He reports multiple previous suicide attempts (2 by overdose, 1 by hanging, and 1 time jumping off a bridge). He denies current suicidal ideation or thoughts of non-suicidal self-harm. He states he can be safe on the unit and that he will engage staff if he begins to feel unsafe. He denies any physical complaints, denies perceptual disturbances, and denies HI or thoughts of hurting others. He reports interest in remaining in the hospital until January 18 when he is moving to [place] to be with family.
[2025-01-07] MEDS: Nicotine Polacrilex Lozenge 4 MG LOZENGE BUCCAL (15:48)
[2025-01-07] MEDS: Doxazosin Mesylate 2 MG TABLET PO (21:01)
[2025-01-07] MEDS: QUEtiapine Fumarate 100 MG TABLET PO (21:01)
[2025-01-07] MEDS: hydrOXYzine HCL 50 MG TABLET PO (21:01)
[2025-01-07] MEDS: traZODone HCL 50 MG TABLET PO (21:01)
[2025-01-08 07:57] VITALS: BP 107/59; PULSE 59; RESP 18; TEMP 36.4; O2SAT 99
[2025-01-08] MEDS: Buprenorphine/Naloxone 8/2 mg FILM 1 FILM SUBLINGUAL (08:30)
--- NOTE | 2025-01-08 09:25 | HO.PSYADMNOT ---
[facility] Date of Service: 01/08/25 Chief Complaint: Depression, SI, clonidine OD, polysubstance use Sources of Information: patient interviewed, chart reviewed and crisis/core team assessment reviewed HPI Narrative: Patient is a 39-year-old male with history of MDD and cocaine use disorder who self presented to ER due to suicidal ideation secondary to increased life stressors. Per crisis report, patient presented to ER, tearful, reporting suicidal ideation with no specific plan or intent. He reports he has been using crack cocaine and took 6 doses of clonidine. Patient stated the overdose was not with the intent to kill himself. History of multiple inpatient psychiatric hospitalizations. History of medication treatment noncompliance. History of aggression. Patient reports history of 1 suicide attempt via hanging. Patient reports poor sleep but good appetite. Patient reports he is struggling with substance abuse and desiring a change. Patient reports increased depression in the context of homelessness, substance abuse and absence of family support. He is medication nonadherent. History of detox and [facility] admissions. Utox positive for buprenorphine and cocaine. During admission assessment, patient presents alert and oriented x3. Calm and cooperative. Patient reports feeling depressed ; patient stated, living in the streets and the drug life is making me suicidal. I want something for my mood. I plan on leaving here and going to [place] to stay with my uncle and aunt to get out of this state . Patient reports sleep and appetite are well. He denies SI/HI/VH/AH. Patient reports he currently does not have outpatient psychiatric providers. History of 1 suicide attempt via hanging. History of multiple inpatient psychiatric hospitalizations. Patient reports he smokes a lot of crack daily. Denies any other substance use. He reports history of using heroin but has not used in 6 years. Patient reports he has no interest in attending a substance abuse program. Patient denies SI/HI/VH/AH. Past Psychiatric History: History multiple inpatient psychiatric hospitalizations. Does not have outpatient psychiatric providers. History of 1 SA attempts via hanging. History of self-injurious behavior via cutting and hitting self. Medical Evaluation Reviewed: Yes COUNTS INCLUDE 234 BEDS AT THE [facility] Medical History (Updated 01/08/25 @ 16:58 by Claudia Hendrix NP) Cocaine abuse Depression Family History: Denies Social History: Homeless. . 4 children(6, 14,16,18 y/o) patient's older children are in his mother's custody and his youngest child was adopted. Unemployed. Substance History: Patient reports smoking crack daily. History of using heroin. Denies any other substance use. Trauma History: Denies Diagnostics Vital Signs (24Hr): Vital Signs - 24 hr 01/07/25 14:37 01/07/25 20:54 01/08/25 07:57 Temperature 97.7 F 97.8 F 97.6 F Pulse Rate 62 53 59 Respiratory Rate 18 18 Blood Pressure 109/59 L 105/56 L 107/59 L Pulse Oximetry 98 99 99 Oxygen Delivery Method Room Air Room Air Room Air BMI result Body Mass Index 28.9 Labs 01/07/25 01:05 01/07/25 01:05 Labs: Laboratory Results - last 48 hr 01/07/25 01/07/25 01:05 01:13 WBC 7.2 RBC 4.71 Hgb 13.5 L Hct 39.5 L MCV 83.9 MCH 28.7 MCHC 34.2 RDW 12.7 Plt Count 200 MPV 9.5 Immature Gran % (Auto) 0.3 Neut % (Auto) 63.8 Lymph % (Auto) 27.1 Lawrence % (Auto) 7.2 Eos % (Auto) 1.0 Baso % (Auto) 0.6 Lymph # (Auto) 2.0 Lawrence # (Auto) 0.5 Eos # (Auto) 0.1 Baso # (Auto) 0.0 Abs Immat Gran (auto) 0.02 Absolute Neuts (auto) 4.6 Absolute Nucleated RBC 0.000 Nucleated RBC % (auto) 0.0 Sodium 139 Potassium 4.4 Chloride 104 Carbon Dioxide 26 Anion Gap 13 BUN 17 H Creatinine 0.82 Estim Creat Clear Calc 130.7 Estimated GFR > 60 Random Glucose 141 H Calcium 9.1 Magnesium 1.9 Total Bilirubin 0.4 Direct Bilirubin 0.1 AST 33 ALT 36 Alkaline Phosphatase 81 Troponin I High Sens 3.3 Total Protein 7.7 Albumin 4.8 Urine Color Yellow Urine Appearance Clear Urine pH 7.0 Ur Specific [place] 1.020 Urine Protein Negative Urine Glucose (UA) Negative Urine Ketones Negative Urine Blood Negative Urine Nitrite Negative Ur Leukocyte Esterase Negative Salicylates < 5.0 L Urine Opiates Screen Not Detected Ur Buprenorphine Scrn Positive H Ur Oxycodone Screen Not Detected Urine Methadone Screen Not Detected Urine Fentanyl Screen Not Detected Acetaminophen < 3 Ur Barbiturates Screen Not Detected Ur Phencyclidine Scrn Not Detected Ur Amphetamines Screen Not Detected U Benzodiazepines Scrn Not Detected Urine Cocaine Screen POSITIVE H U Marijuana (THC) Screen Not Detected Ethyl Alcohol < 10 Meds/Allergies Meds Home Medications ?Medication ?Instructions ?Recorded ?Confirmed ?Type buprenorphine 100 mg/0.5 mL 100 mg subcut Q4W 01/02/25 01/07/25 History solution,exten.rel.subcutaneous syringe (Sublocade) clonidine HCl 0.2 mg tablet 0.2 mg PO BID PRN Anxiety 01/02/25 01/07/25 History hydroxyzine pamoate 50 mg capsule 50 mg PO BEDTIME 01/02/25 01/07/25 History quetiapine 100 mg tablet 100 mg PO BEDTIME 01/02/25 01/07/25 History risperidone 1 mg tablet 1 mg PO BID 01/02/25 01/07/25 History buprenorphine 8 mg-naloxone 2 mg 1 film sublingual DAILY 01/07/25 01/07/25 History sublingual film doxazosin 2 mg tablet 2 mg PO BEDTIME 01/07/25 01/07/25 History Allergies Allergies Allergy/AdvReac Type Severity Reaction Status Date / Time haloperidol [From Haldol] Allergy Unknown Verified 01/07/25 00:33 risperidone Allergy Anaphylaxis Verified 01/07/25 00:33 Mental Status Exam Mental Status Exam Patient Appearance: Appropriate Patient Orientation: Person, Place, Time and Situation Level of Consciousness: Awake Patient Behavior: Cooperative and Good Eye Contact Mood Description: Labile Affect Description: Labile Ability to Follow Directions: Good Speech Pattern: Clear Memory Description: Intact Hallucinations: None Delusions: Not Present Thought Process: Intact Thought Content: positive for Intact Assessment & Plan Assessment & Plan (1) MDD (major depressive disorder), recurrent episode: Status: Acute Code(s): F33.9 - Major depressive disorder, recurrent, unspecified (2) Cocaine use disorder: Status: Acute Code(s): F14.10 - Cocaine abuse, uncomplicated Plan Patient is a 39-year-old male with history of MDD and cocaine use disorder who self presented to ER due to suicidal ideation secondary to increased life stressors. Plan: 15 minute safety checks Continue home medications Obtain collateral Encourage medication compliance Encourage groups Discharge planning Patient educated on: diagnosis and medication risk/benefits Reason for continued inpatient stay Substantial Risk for: med/psych decompensation Statement Statement: I have reviewed the history and physical and performed a pertinent examination on my patient. No changes have occurred unless specified. If the History and Physical was not performed prior to admission, the Hospitalist's service will be consulted for completing the admission physical. Time Spent With Patient Time: Total time managing care of this patient today _60___ minutes.
[2025-01-08] MEDS: OLANZapine 5 MG TABLET PO (18:02)
[2025-01-08] MEDS: QUEtiapine Fumarate 25 MG TABLET PO (18:02)
[2025-01-08 19:56] VITALS: BP 138/63; PULSE 69; TEMP 36.9; O2SAT 97
[2025-01-08] MEDS: traZODone HCL 50 MG TABLET PO (21:34)
[2025-01-08] MEDS: Acetaminophen 325 MG TABLET 650 MG PO (21:35)
[2025-01-08] MEDS: Doxazosin Mesylate 2 MG TABLET PO (21:36)
[2025-01-08] MEDS: QUEtiapine Fumarate 100 MG TABLET PO (21:36)
[2025-01-08] MEDS: hydrOXYzine HCL 50 MG TABLET PO (21:36)
[2025-01-09 08:00] VITALS: BP 141/69; PULSE 69; RESP 18; TEMP 36.4; O2SAT 97
[2025-01-09] MEDS: Buprenorphine/Naloxone 8/2 mg FILM 1 FILM SUBLINGUAL (09:00)
--- NOTE | 2025-01-09 15:11 | HO.PSYCHPN ---
Subjective Subjective Date of Service: 01/09/25 Reason For Visit: Depression, SI, clonidine OD, polysubstance use Interim History: Active on unit. social with peers. medication compliant. per nursing, had multiple outbursts yesterday d/t low frustration tolerance; pt was much calmer today. He reports feeling better today and sleeping well last night. Pt reports he was upset last night d/t people slamming my bed room door every time they left . denies SI/HI/VH/AH. Medication Compliance: Yes Side effects from medications: No Attending Groups: Yes Mental Status Exam Mental Status Exam Patient Appearance: Appropriate Patient Orientation: Person, Place, Time and Situation Level of Consciousness: Awake Patient Behavior: Appropriate, Cooperative and Good Eye Contact Mood Description: Calm Affect Description: Calm Ability to Follow Directions: Good Speech Pattern: Clear Memory Description: Intact Hallucinations: None Delusions: Not Present Thought Process: Intact Thought Content: positive for Intact Diagnostics Vital Signs (24Hr): Vital Signs - 24 hr 01/08/25 19:56 01/09/25 08:00 Temperature 98.5 F 97.6 F Pulse Rate 69 69 Respiratory Rate 18 Blood Pressure 138/63 141/69 H Pulse Oximetry 97 97 Oxygen Delivery Method Room Air Room Air BMI result Body Mass Index 28.9 Labs 01/07/25 01:05 01/07/25 01:05 Medications Medications Current Medications Acetaminophen (Acetaminophen 325 Mg Tablet) 650 mg PO Q6H PRN PRN Reason: Headache/Pain, Scale 1-10 Last Admin: 01/08/25 21:35 Dose: 650 mg Al Hydroxide/Mg Hydroxide (Magnesium Hydrox/Alum Hydrox 30 Ml Oral.Susp) 30 ml PO Q6H PRN PRN Reason: Heartburn/Nausea Buprenorphine/Naloxone (Buprenorphine/Naloxone 8/2 Mg Film) 1 film SUBLINGUAL DAILY IVIS Last Admin: 01/09/25 09:00 Dose: 1 film Clonidine HCl (Clonidine Hcl 0.2 Mg Tablet) 0.2 mg PO BID PRN; Protocol PRN Reason: Anxiety Doxazosin Mesylate (Doxazosin Mesylate 2 Mg Tablet) 2 mg PO BEDTIME IVIS; Protocol Last Admin: 01/08/25 21:36 Dose: 2 mg Hydroxyzine HCl (Hydroxyzine Hcl 50 Mg Tablet) 50 mg PO BEDTIME IVIS Last Admin: 01/08/25 21:36 Dose: 50 mg Magnesium Hydroxide (Milk Of Magnesia 30 Ml Oral.Susp) 30 ml PO DAILY PRN PRN Reason: Constipation Nicotine (Nicotine 21 Mg Patch.Td24) 21 mg TRANSDERMA DAILY PRN PRN Reason: smoking cessation Nicotine Polacrilex (Nicotine Polacrilex Lozenge 4 Mg Lozenge) 4 mg BUCCAL Q2H PRN PRN Reason: Nicotine Cravings Last Admin: 01/07/25 15:48 Dose: 4 mg Olanzapine (Olanzapine 5 Mg Tablet) 5 mg PO Q4H PRN PRN Reason: agitation Last Admin: 01/08/25 18:02 Dose: 5 mg Quetiapine Fumarate (Quetiapine Fumarate 100 Mg Tablet) 100 mg PO BEDTIME IVIS Last Admin: 01/08/25 21:36 Dose: 100 mg Quetiapine Fumarate (Quetiapine Fumarate 25 Mg Tablet) 25 mg PO Q4H PRN PRN Reason: moderate anxiety Last Admin: 01/08/25 18:02 Dose: 25 mg Trazodone HCl (Trazodone Hcl 50 Mg Tablet) 50 mg PO BEDTIME MRX1 PRN PRN Reason: Insomnia Last Admin: 01/08/25 21:34 Dose: 50 mg Allergies Allergies Allergy/AdvReac Type Severity Reaction Status Date / Time haloperidol [From Haldol] Allergy Unknown Verified 01/07/25 00:33 risperidone Allergy Anaphylaxis Verified 01/07/25 00:33 Assessment & Plan Assessment & Plan (1) MDD (major depressive disorder), recurrent episode: Status: Acute Code(s): F33.9 - Major depressive disorder, recurrent, unspecified (2) Cocaine use disorder: Status: Acute Code(s): F14.10 - Cocaine abuse, uncomplicated Plan Patient is a 39-year-old male with history of MDD and cocaine use disorder who self presented to ER due to suicidal ideation secondary to increased life stressors. Plan: 15 minute safety checks Continue home medications Obtain collateral Encourage medication compliance Encourage groups Discharge planning 01/09: Active on unit. social with peers. medication compliant. per nursing, had multiple outbursts yesterday d/t low frustration tolerance; pt was much calmer today. He reports feeling better today and sleeping well last night. Pt reports he was upset last night d/t people slamming my bed room door every time they left . denies SI/HI/VH/AH. Continue current tx plan. Patient educated on: diagnosis and medication risk/benefits Reason for continued inpatient stay Substantial Risk for: med/psych decompensation Time Spent With Patient Time: Total time managing care of this patient today _20___ minutes.
[2025-01-09] MEDS: QUEtiapine Fumarate 25 MG TABLET PO (18:27)
[2025-01-09] MEDS: OLANZapine 5 MG TABLET PO (18:27)
[2025-01-09] MEDS: Magnesium Hydrox/Alum Hydrox 30 ML ORAL.SUSP PO (19:50)
[2025-01-09] MEDS: QUEtiapine Fumarate 100 MG TABLET PO (21:20)
[2025-01-09] MEDS: Doxazosin Mesylate 2 MG TABLET PO (21:20)
[2025-01-09] MEDS: hydrOXYzine HCL 50 MG TABLET PO (21:20)
[2025-01-09] MEDS: Milk of Magnesia 30 ML ORAL.SUSP PO (21:22)
[2025-01-10] MEDS: Magnesium Hydrox/Alum Hydrox 30 ML ORAL.SUSP PO (00:03)
[2025-01-10] MEDS: Buprenorphine/Naloxone 8/2 mg FILM 1 FILM SUBLINGUAL (08:33)
[2025-01-10 09:10] LABS: Estimated Average Glucose 120 mg/dL; Hemoglobin A1C 154.7603 umol/L; Hemoglobin A1c % 5.8 % (<6.0); Total Hemoglobin (HGBA1C) 3850.5865 umol/L
[2025-01-10 09:19] LABS: Anion Gap 14 (12-20); Blood Urea Nitrogen 14 mg/dL (9-16); Calcium 9.5 mg/dL (8.4-10.2); Carbon Dioxide 26 mmol/L (22-29); Chloride 104 mmol/L (96-108); Cholesterol 181 mg/dL (<200); Creatinine Clr Calc Pharmacy 144.8; Estimated Glomerular Filt Rate > 60; Glucose Random 100 mg/dL (60-115); HDL Cholesterol 49 mg/dL (>40); LDL Cholesterol Calculated 93 mg/dL (<100); Potassium 4.7 mmol/L (3.3-5.1); Sodium 139 mmol/L (135-145); Triglycerides 195 mg/dL (<150)
[2025-01-10 09:35] LABS: Thyroid Stimulating Hormone 3.55 uIU/mL (0.32-4.0)
[2025-01-10 09:42] LABS: Free T4 (Free Thyroxine) 0.92 ng/dL (0.71-1.85)
[2025-01-10 09:48] LABS: Folate 13.1 ng/mL (> or = 4.0); Vitamin B12 423 pg/mL (200-900)
--- NOTE | 2025-01-10 16:19 | HO.PSYCHPN ---
Subjective Subjective Date of Service: 01/10/25 Reason For Visit: Depression, SI, clonidine OD, polysubstance use Interim History: Patient reports feeling anxious today; encouraged to utilize PRN medications and coping skills. Later observed napping in the afternoon. Continues calmer today and less irritable. Seroquel increased to 150mg PO bedtime. denies SI/HI/VH/AH. Medication Compliance: Yes Side effects from medications: No Attending Groups: No Mental Status Exam Mental Status Exam Patient Appearance: Appropriate Patient Orientation: Person, Place, Time and Situation Level of Consciousness: Awake Patient Behavior: Appropriate, Cooperative and Good Eye Contact Mood Description: Anxious Affect Description: Calm Ability to Follow Directions: Good Speech Pattern: Clear Memory Description: Intact Hallucinations: None Delusions: Not Present Thought Process: Intact Thought Content: positive for Intact Diagnostics Vital Signs (24Hr): BMI result Body Mass Index 28.9 Labs 01/07/25 01:05 01/10/25 08:25 Labs: Laboratory Results - last 48 hr 01/10/25 08:25 Sodium 139 Potassium 4.7 Chloride 104 Carbon Dioxide 26 Anion Gap 14 BUN 14 Creatinine 0.74 Estim Creat Clear Calc 144.8 Estimated GFR > 60 Random Glucose 100 Estimat Average Glucose 120 Hemoglobin A1c % 5.8 Calcium 9.5 Magnesium 2.0 Triglycerides 195 H Cholesterol 181 LDL Cholesterol, Calc 93 HDL Cholesterol 49 Vitamin B12 423 Folate 13.1 TSH 3.55 Free T4 0.92 Medications Medications Current Medications Acetaminophen (Acetaminophen 325 Mg Tablet) 650 mg PO Q6H PRN PRN Reason: Headache/Pain, Scale 1-10 Last Admin: 01/08/25 21:35 Dose: 650 mg Al Hydroxide/Mg Hydroxide (Magnesium Hydrox/Alum Hydrox 30 Ml Oral.Susp) 30 ml PO Q6H PRN PRN Reason: Heartburn/Nausea Last Admin: 01/10/25 00:03 Dose: 30 ml Buprenorphine/Naloxone (Buprenorphine/Naloxone 8/2 Mg Film) 1 film SUBLINGUAL DAILY IVIS Last Admin: 01/10/25 08:33 Dose: 1 film Clonidine HCl (Clonidine Hcl 0.2 Mg Tablet) 0.2 mg PO BID PRN; Protocol PRN Reason: Anxiety Doxazosin Mesylate (Doxazosin Mesylate 2 Mg Tablet) 2 mg PO BEDTIME IVIS; Protocol Last Admin: 01/09/25 21:20 Dose: 2 mg Hydroxyzine HCl (Hydroxyzine Hcl 50 Mg Tablet) 50 mg PO BEDTIME IVIS Last Admin: 01/09/25 21:20 Dose: 50 mg Magnesium Hydroxide (Milk Of Magnesia 30 Ml Oral.Susp) 30 ml PO DAILY PRN PRN Reason: Constipation Last Admin: 01/09/25 21:22 Dose: 30 ml Nicotine (Nicotine 21 Mg Patch.Td24) 21 mg TRANSDERMA DAILY PRN PRN Reason: smoking cessation Nicotine Polacrilex (Nicotine Polacrilex Lozenge 4 Mg Lozenge) 4 mg BUCCAL Q2H PRN PRN Reason: Nicotine Cravings Last Admin: 01/07/25 15:48 Dose: 4 mg Olanzapine (Olanzapine 5 Mg Tablet) 5 mg PO Q4H PRN PRN Reason: agitation Last Admin: 01/09/25 18:27 Dose: 5 mg Quetiapine Fumarate (Quetiapine Fumarate 100 Mg Tablet) 100 mg PO BEDTIME IVIS Last Admin: 01/09/25 21:20 Dose: 100 mg Quetiapine Fumarate (Quetiapine Fumarate 25 Mg Tablet) 25 mg PO Q4H PRN PRN Reason: moderate anxiety Last Admin: 01/09/25 18:27 Dose: 25 mg Trazodone HCl (Trazodone Hcl 50 Mg Tablet) 50 mg PO BEDTIME MRX1 PRN PRN Reason: Insomnia Last Admin: 01/08/25 21:34 Dose: 50 mg Allergies Allergies Allergy/AdvReac Type Severity Reaction Status Date / Time haloperidol [From Haldol] Allergy Unknown Verified 01/07/25 00:33 risperidone Allergy Anaphylaxis Verified 01/07/25 00:33 Assessment & Plan Assessment & Plan (1) MDD (major depressive disorder), recurrent episode: Status: Acute Code(s): F33.9 - Major depressive disorder, recurrent, unspecified (2) Cocaine use disorder: Status: Acute Code(s): F14.10 - Cocaine abuse, uncomplicated Plan Patient is a 39-year-old male with history of MDD and cocaine use disorder who self presented to ER due to suicidal ideation secondary to increased life stressors. Plan: 15 minute safety checks Continue home medications Obtain collateral Encourage medication compliance Encourage groups Discharge planning 01/09: Active on unit. social with peers. medication compliant. per nursing, had multiple outbursts yesterday d/t low frustration tolerance; pt was much calmer today. He reports feeling better today and sleeping well last night. Pt reports he was upset last night d/t people slamming my bed room door every time they left . denies SI/HI/VH/AH. Continue current tx plan. 01/10: Patient reports feeling anxious today; encouraged to utilize PRN medications and coping skills. Later observed napping in the afternoon. Continues calmer today and less irritable. Seroquel increased to 150mg PO bedtime. denies SI/HI/VH/AH. Patient educated on: diagnosis, medication risk/benefits and therapeutic strategies Reason for continued inpatient stay Substantial Risk for: med/psych decompensation Time Spent With Patient Time: Total time managing care of this patient today _20___ minutes.
[2025-01-10] MEDS: QUEtiapine Fumarate 25 MG TABLET PO (18:59)
[2025-01-10] MEDS: OLANZapine 5 MG TABLET PO (18:59)
[2025-01-10 20:00] VITALS: RESP 16
[2025-01-10] MEDS: QUEtiapine Fumarate 50 MG TABLET 150 MG PO (21:19)
[2025-01-10] MEDS: hydrOXYzine HCL 50 MG TABLET PO (21:21)
[2025-01-10] MEDS: traZODone HCL 50 MG TABLET PO (21:21)
--- NOTE | 2025-01-11 05:38 | PC.NURSE ---
Patient declined hands on vital signs to be done. He also refused his Cardura at [facility]
[2025-01-11 08:00] VITALS: BP 120/75; PULSE 83; TEMP 36.8; O2SAT 98
[2025-01-11] MEDS: Buprenorphine/Naloxone 8/2 mg FILM 1 FILM SUBLINGUAL (08:40)
[2025-01-11] MEDS: Magnesium Hydrox/Alum Hydrox 30 ML ORAL.SUSP PO (09:50)
[2025-01-11] MEDS: Calcium Carbonate 750 MG TAB.CHEW PO ×2 (15:07→20:06)
[2025-01-11] MEDS: QUEtiapine Fumarate 25 MG TABLET PO (15:07)
--- NOTE | 2025-01-11 16:35 | HO.PSYCHPN ---
Subjective Subjective Date of Service: 01/11/25 Reason For Visit: Depression, SI, clonidine OD, polysubstance use Interim History: angling for benzos. unconvincing anxiety claim. Mental Status Exam Mental Status Exam Patient Appearance: Appropriate Patient Orientation: Person, Place, Time and Situation Level of Consciousness: Awake Patient Behavior: Appropriate, Cooperative and Good Eye Contact Mood Description: Anxious Affect Description: Calm Ability to Follow Directions: Good Speech Pattern: Clear Memory Description: Intact Hallucinations: None Delusions: Not Present Thought Process: Intact Thought Content: positive for Intact Diagnostics Vital Signs (24Hr): Vital Signs - 24 hr 01/10/25 20:00 01/11/25 08:00 Temperature 98.3 F Pulse Rate 83 Respiratory Rate 16 Blood Pressure 120/75 Pulse Oximetry 98 Oxygen Delivery Method Room Air BMI result Body Mass Index 28.9 Labs 01/07/25 01:05 01/10/25 08:25 Labs: Laboratory Results - last 48 hr 01/10/25 08:25 Sodium 139 Potassium 4.7 Chloride 104 Carbon Dioxide 26 Anion Gap 14 BUN 14 Creatinine 0.74 Estim Creat Clear Calc 144.8 Estimated GFR > 60 Random Glucose 100 Estimat Average Glucose 120 Hemoglobin A1c % 5.8 Calcium 9.5 Magnesium 2.0 Triglycerides 195 H Cholesterol 181 LDL Cholesterol, Calc 93 HDL Cholesterol 49 Vitamin B12 423 Folate 13.1 TSH 3.55 Free T4 0.92 Medications Medications Current Medications Acetaminophen (Acetaminophen 325 Mg Tablet) 650 mg PO Q6H PRN PRN Reason: Headache/Pain, Scale 1-10 Last Admin: 01/08/25 21:35 Dose: 650 mg Al Hydroxide/Mg Hydroxide (Magnesium Hydrox/Alum Hydrox 30 Ml Oral.Susp) 30 ml PO Q6H PRN PRN Reason: Heartburn/Nausea Last Admin: 01/11/25 09:50 Dose: 30 ml Buprenorphine/Naloxone (Buprenorphine/Naloxone 8/2 Mg Film) 1 film SUBLINGUAL DAILY IVIS Last Admin: 01/11/25 08:40 Dose: 1 film Calcium Carbonate (Calcium Carbonate 750 Mg Tab.Chew) 750 mg PO Q4H PRN PRN Reason: Heartburn Last Admin: 01/11/25 15:07 Dose: 750 mg Clonidine HCl (Clonidine Hcl 0.2 Mg Tablet) 0.2 mg PO BID PRN; Protocol PRN Reason: Anxiety Hydroxyzine HCl (Hydroxyzine Hcl 50 Mg Tablet) 50 mg PO BEDTIME IVIS Last Admin: 01/10/25 21:21 Dose: 50 mg Magnesium Hydroxide (Milk Of Magnesia 30 Ml Oral.Susp) 30 ml PO DAILY PRN PRN Reason: Constipation Last Admin: 01/09/25 21:22 Dose: 30 ml Nicotine Polacrilex (Nicotine Polacrilex 2 Mg Gum) 4 mg BUCCAL Q1H PRN PRN Reason: Nicotine Cravings Quetiapine Fumarate (Quetiapine Fumarate 25 Mg Tablet) 25 mg PO Q4H PRN PRN Reason: moderate anxiety Last Admin: 01/11/25 15:07 Dose: 25 mg Quetiapine Fumarate (Quetiapine Fumarate 50 Mg Tablet) 150 mg PO BEDTIME IVIS Last Admin: 01/10/25 21:19 Dose: 150 mg Trazodone HCl (Trazodone Hcl 50 Mg Tablet) 50 mg PO BEDTIME MRX1 PRN PRN Reason: Insomnia Last Admin: 01/10/25 21:21 Dose: 50 mg Allergies Allergies Allergy/AdvReac Type Severity Reaction Status Date / Time haloperidol [From Haldol] Allergy Unknown Verified 01/07/25 00:33 risperidone Allergy Anaphylaxis Verified 01/07/25 00:33 Assessment & Plan Assessment & Plan (1) MDD (major depressive disorder), recurrent episode: Status: Acute Code(s): F33.9 - Major depressive disorder, recurrent, unspecified (2) Cocaine use disorder: Status: Acute Code(s): F14.10 - Cocaine abuse, uncomplicated Plan Patient is a 39-year-old male with history of MDD and cocaine use disorder who self presented to ER due to suicidal ideation secondary to increased life stressors. Plan: 15 minute safety checks Continue home medications Obtain collateral Encourage medication compliance Encourage groups Discharge planning 01/09: Active on unit. social with peers. medication compliant. per nursing, had multiple outbursts yesterday d/t low frustration tolerance; pt was much calmer today. He reports feeling better today and sleeping well last night. Pt reports he was upset last night d/t people slamming my bed room door every time they left . denies SI/HI/VH/AH. Continue current tx plan. 01/10: Patient reports feeling anxious today; encouraged to utilize PRN medications and coping skills. Later observed napping in the afternoon. Continues calmer today and less irritable. Seroquel increased to 150mg PO bedtime. denies SI/HI/VH/AH. 01/11: angling for benzos. unconvincing anxiety claims. planning to stay through the new month then discharge. goals of hospitalization unclear. Reason for continued inpatient stay Substantial Risk for: inability to function Time Spent With Patient Time: Total time managing care of this patient today __25__ minutes.
[2025-01-11 20:00] VITALS: BP 121/74; PULSE 90; RESP 16; TEMP 36.5; O2SAT 98
[2025-01-11] MEDS: QUEtiapine Fumarate 50 MG TABLET 150 MG PO (22:05)
[2025-01-11] MEDS: hydrOXYzine HCL 50 MG TABLET PO (22:06)
[2025-01-12] MEDS: Calcium Carbonate 750 MG TAB.CHEW PO ×3 (00:26→22:08)
[2025-01-12 08:20] VITALS: BP 136/74; PULSE 83; RESP 16; TEMP 36.9; O2SAT 98
[2025-01-12] MEDS: Buprenorphine/Naloxone 8/2 mg FILM 1 FILM SUBLINGUAL (08:51)
--- NOTE | 2025-01-12 12:56 | P.DS_ITS ---
DS: Providers Provider Date of Service: 01/12/25 Date of admission: 01/07/25 12:54 Date of discharge: 01/13/25 Primary care physician: Unknown Physician DS: Diagnosis Discharge Diagnosis (1) MDD (major depressive disorder), recurrent episode: Status: Acute (2) Cocaine use disorder: Status: Acute DS: Medications Discharge Medications Home Medications: Home Medications ?Medication ?Instructions ?Recorded ?Confirmed buprenorphine 100 mg/0.5 mL 100 mg subcut Q4W 01/02/25 01/07/25 solution,exten.rel.subcutaneous syringe (Sublocade) hydroxyzine pamoate 50 mg capsule 50 mg PO BEDTIME 01/02/25 01/07/25 buprenorphine 8 mg-naloxone 2 mg 1 film sublingual DAILY 01/07/25 01/07/25 sublingual film Previous Rx's ?Medication ?Instructions ?Recorded quetiapine 50 mg tablet 150 mg (3 x 50 mg) PO BEDTIME 30 01/12/25 days #90 tabs Mental Status Exam Mental Status Exam Narrative: mood good. denies SI/SIBI/HI/AVH. Patient Appearance: Appropriate Patient Orientation: Person, Place, Time and Situation Level of Consciousness: Awake Patient Behavior: Appropriate, Cooperative and Good Eye Contact Mood Description: Anxious Affect Description: Calm Ability to Follow Directions: Good Speech Pattern: Clear Memory Description: Intact Hallucinations: None Delusions: Not Present Thought Process: Intact Thought Content: positive for Intact Data Data Completed and Pending Completed studies during hospitalization [Text1]: 01/07/25 01/07/25 01/10/25 01:05 01:13 08:25 WBC 7.2 RBC 4.71 Hgb 13.5 L Hct 39.5 L MCV 83.9 MCH 28.7 MCHC 34.2 RDW 12.7 Plt Count 200 MPV 9.5 Immature Gran % (Auto) 0.3 Neut % (Auto) 63.8 Lymph % (Auto) 27.1 [place] % (Auto) 7.2 Eos % (Auto) 1.0 Baso % (Auto) 0.6 Lymph # (Auto) 2.0 [place] # (Auto) 0.5 Eos # (Auto) 0.1 Baso # (Auto) 0.0 Abs Immat Gran (auto) 0.02 Absolute Neuts (auto) 4.6 Absolute Nucleated RBC 0.000 Nucleated RBC % (auto) 0.0 Sodium 139 139 Potassium 4.4 4.7 Chloride 104 104 Carbon Dioxide 26 26 Anion Gap 13 14 BUN 17 H 14 Creatinine 0.82 0.74 Estim Creat Clear Calc 130.7 144.8 Estimated GFR > 60 > 60 Random Glucose 141 H 100 Estimat Average Glucose 120 Hemoglobin A1c % 5.8 Calcium 9.1 9.5 Magnesium 1.9 2.0 Total Bilirubin 0.4 Direct Bilirubin 0.1 AST 33 ALT 36 Alkaline Phosphatase 81 Troponin I High Sens 3.3 Total Protein 7.7 Albumin 4.8 Triglycerides 195 H Cholesterol 181 LDL Cholesterol, Calc 93 HDL Cholesterol 49 Vitamin B12 423 Folate 13.1 TSH 3.55 Free T4 0.92 Urine Color Yellow Urine Appearance Clear Urine pH 7.0 Ur Specific [place] 1.020 Urine Protein Negative Urine Glucose (UA) Negative Urine Ketones Negative Urine Blood Negative Urine Nitrite Negative Ur Leukocyte Esterase Negative Salicylates < 5.0 L Urine Opiates Screen Not Detected Ur Buprenorphine Scrn Positive H Ur Oxycodone Screen Not Detected Urine Methadone Screen Not Detected Urine Fentanyl Screen Not Detected Acetaminophen < 3 Ur Barbiturates Screen Not Detected Ur Phencyclidine Scrn Not Detected Ur Amphetamines Screen Not Detected U Benzodiazepines Scrn Not Detected Urine Cocaine Screen POSITIVE H U Marijuana (THC) Screen Not Detected Ethyl Alcohol < 10 DS: Summary Hospital Course Hospital Course: per 01/08 admission note: HPI Narrative: Patient is a 39-year-old male with history of MDD and cocaine use disorder who self presented to ER due to suicidal ideation secondary to increased life stressors. Per crisis report, patient presented to ER, tearful, reporting suicidal ideation with no specific plan or intent. He reports he has been using crack cocaine and took 6 doses of clonidine. Patient stated the overdose was not with the intent to kill himself. History of multiple inpatient psychiatric hospitalizations. History of medication treatment noncompliance. History of aggression. Patient reports history of 1 suicide attempt via hanging. Patient reports poor sleep but good appetite. Patient reports he is struggling with substance abuse and desiring a change. Patient reports increased depression in the context of homelessness, substance abuse and absence of family support. He is medication nonadherent. History of detox and [facility] admissions. Utox positive for buprenorphine and cocaine. During admission assessment, patient presents alert and oriented x3. Calm and cooperative. Patient reports feeling depressed ; patient stated, living in the streets and the drug life is making me suicidal. I want something for my mood. I plan on leaving here and going to [place] to stay with my uncle and aunt to get out of this state . Patient reports sleep and appetite are well. He denies SI/HI/VH/AH. Patient reports he currently does not have outpatient psychiatric providers. History of 1 suicide attempt via hanging. History of multiple inpatient psychiatric hospitalizations. Patient reports he smokes a lot of crack daily. Denies any other substance use. He reports history of using heroin but has not used in 6 years. Patient reports he has no interest in attending a substance abuse program. Patient denies SI/HI/VH/AH. Past Psychiatric History: History multiple inpatient psychiatric hospitalizations. Does not have outpatient psychiatric providers. History of 1 SA attempts via hanging. History of self-injurious behavior via cutting and hitting self. Medical Evaluation Reviewed: Yes [facility] Medical History (Updated 01/08/25 @ 16:58 by Claudia Hendrix NP) Cocaine abuse Depression Family History: Denies Social History: Homeless. . 4 children(6, 14,16,18 y/o) patient's older children are in his mother's custody and his youngest child was adopted. Unemployed. Substance History: Patient reports smoking crack daily. History of using heroin. Denies any other substance use. Trauma History: Denies Precis: Patient is a 39-year-old male with history of MDD and cocaine use disorder who self presented to ER due to suicidal ideation secondary to increased life stressors. 01/08: Continue home medications. Obtain collateral. Encourage medication compliance. Encourage groups. Discharge planning 01/09: Active on unit. social with peers. medication compliant. per nursing, had multiple outbursts yesterday d/t low frustration tolerance; pt was much calmer today. He reports feeling better today and sleeping well last night. Pt reports he was upset last night d/t people slamming my bed room door every time they left . denies SI/HI/VH/AH. Continue current tx plan. 01/10: Patient reports feeling anxious today; encouraged to utilize PRN medications and coping skills. Later observed napping in the afternoon. Continues calmer today and less irritable. Seroquel increased to 150mg PO bedtime. denies SI/HI/VH/AH. 01/11: angling for benzos. unconvincing anxiety claims. planning to stay through the new month then discharge. goals of hospitalization unclear. 01/12: up and about the unit, watching TV. submitted 3-day notice today. denies safety concerns. meds reviewed, reconciled, prescribed. planning for discharge tomorrow. 01/13: stable overnight. discharged as per plan. Time Spent with Patient Time attestation: Total time managing care of this patient today __35__ minutes. Discharge Plan Discharge Anticipated Discharge Date/Time: 01/13/25 11:00 Patient Disposition: Home, Self-Care Discharge Diagnosis: Major Depressive Disorder Cocaine Use Disorder Opioid Use Disorder, on Partial Agonist Maintenance Referrals: Physician,Unknown J [Primary Care Provider] - 1 Week (Pt has no PCP and declined consent.) Discharge Medications: New quetiapine 50 mg Tablet 150 mg PO BEDTIME 30 Days Qty: 90 0RF naloxone [Narcan] 4 mg/actuation spray,non-aerosol 4 mg intranasal Q2M PRN (Reason: opioid overdose) Qty: 2 0RF Rx Instructions: spray 1 dose into ONE nostril; alternate nostrils w each dose until help arrives Continued hydroxyzine pamoate 50 mg capsule 50 mg PO BEDTIME Sublocade 100 mg/0.5 mL solution, extended rel syringe 100 mg SUBCUT Q4W buprenorphine-naloxone 8-2 mg film 1 film sublingual DAILY 7 Days Qty: 7 0RF Discontinued quetiapine 100 mg tablet 100 mg PO BEDTIME clonidine HCl 0.2 mg tablet 0.2 mg PO BID PRN (Reason: Anxiety) risperidone 1 mg tablet 1 mg PO BID doxazosin 2 mg tablet 2 mg PO BEDTIME Discharge Orders: Discharge Order (Routine); Ordered 01/13/25 Ordered By: Grant Waters Diet: Advance to usual diet Activity on Discharge: As tolerated Stand Alone Forms: Patient Portal Discharge page, Community Support Print Language: Upper Sorbian Care Plan Goals: remain safe, sober, and stable in the outpatient treatment setting Health Concerns: none Plan of Treatment: take medications as prescribed, attend appointments as scheduled Assessment: not at imminent risk of harm to self or others Discharge Date/Time: 01/13/25 10:29
[2025-01-12] MEDS: QUEtiapine Fumarate 25 MG TABLET PO (13:11)
[2025-01-12 20:10] VITALS: PULSE 90; TEMP 36.9; O2SAT 97
[2025-01-12] MEDS: QUEtiapine Fumarate 50 MG TABLET 150 MG PO (22:08)
[2025-01-12] MEDS: hydrOXYzine HCL 50 MG TABLET PO (22:08)
[2025-01-13 08:00] VITALS: BP 121/70; PULSE 78; RESP 18; O2SAT 100
[2025-01-13] MEDS: Buprenorphine/Naloxone 8/2 mg FILM 1 FILM SUBLINGUAL (08:35)
== END 2025-01-13 10:29 | disposition home or self-care (01) | DRG 885 ==
LOC: HO.ED 07:06 → HO.PM5 12:56
PROVIDERS: Emergency Medicine; Psychiatry & Neurology Psychiatry; Admitting Provider Clinical Nurse Specialist Psychiatric/Mental Health, Adult; Emergency Provider Emergency Medicine; Visit Provider Clinical Nurse Specialist Psychiatric/Mental Health, Adult
DX: F33.9 Major depressive disorder, recurrent, unspecified (principal); F11.20 Opioid dependence, uncomplicated; R45.851 Suicidal ideations; Z59.02 Unsheltered homelessness; F19.90 Other psychoactive substance use, unspecified, uncomplicated; T46.5X1A Poisoning by other antihypertensive drugs, accidental (unintentional), initial encounter; F17.210 Nicotine dependence, cigarettes, uncomplicated; F14.10 Cocaine abuse, uncomplicated; Z71.6 Tobacco abuse counseling; Z63.5 Disruption of family by separation and divorce; Z79.899 Other long term (current) drug therapy
CPT/HCPCS: 36415; 80048; 80061; 80076; 80143; 80179; 80307; 81003; 82607; 82746; 83036; 83735; 84439; 84443; 84484; 85025; 93005; 99285; S9485

== ENCOUNTER → 2025-01-07 06:32 | Outpatient (BNV) | payer MEDICARE, MEDICAID, SELFPAY | PROVIDERS: Admitting Provider Clinical Nurse Specialist Psychiatric/Mental Health, Adult; Emergency Provider Emergency Medicine; Visit Provider Internal Medicine Cardiovascular Disease | DX: I44.0 Atrioventricular block, first degree (principal); R00.1 Bradycardia, unspecified; T50.901A Poisoning by unspecified drugs, medicaments and biological substances, accidental (unintentional), initial encounter | CPT/HCPCS: 93010 ==

== ENCOUNTER → 2025-01-07 12:54 | Outpatient (BNV) | payer MEDICARE, MEDICAID, SELFPAY | PROVIDERS: Admitting Provider Clinical Nurse Specialist Psychiatric/Mental Health, Adult; Emergency Provider Emergency Medicine; Visit Provider Registered Nurse | DX: F33.2 Major depressive disorder, recurrent severe without psychotic features (principal); F14.10 Cocaine abuse, uncomplicated | CPT/HCPCS: 90792; 99231; 99232 ==

== ENCOUNTER 2025-01-15 17:54 | Emergency (ER) | payer MEDICARE, MEDICAID, SELFPAY ==
[2025-01-15 18:16] VITALS: BP 80/39; PULSE 62; RESP 18; TEMP 36.4; O2SAT 97; BMI 28.9
--- NOTE | 2025-01-15 18:36 | MHC.EDTECH ---
Patient raising voice, swaying in hallway, rude to staff, punched glass at nurses desk, patient re-directed to room. Food provided. Patient then raised voice to this tech. Swearing, acting inappropriate.
--- NOTE | 2025-01-15 18:47 | ED_ITS ---
HPI - Psych General Chief Complaint: Psychiatric Symptoms Stated Complaint: crisis Time Seen by Provider: 01/15/25 18:20 Source: patient History of Present Illness ED Provider: Hayde Dsouza NP HPI Narrative: Patient is a 39-year-old male who presents emergency department for evaluation. Walked in through triage stating ?crisis?. He does not provide much meaningful history. He clearly appears under the influence of drugs and/or alcohol. It is difficult to get any clear history from him. He does admit to alcohol consumption today as well as smoking crack cocaine. Was not entirely clear at this time why he decided to come to the emergency department, who does not answer this question clearly at all when asked. Ask if he has a suicidal or homicidal ideations he states no. Related Data Home Medications ?Medication ?Instructions ?Recorded ?Confirmed buprenorphine 8 mg-naloxone 2 mg 1 film sublingual DAILY 01/15/25 01/15/25 sublingual film Previous Rx's ?Medication ?Instructions ?Recorded quetiapine 50 mg tablet 150 mg (3 x 50 mg) PO BEDTIME 30 01/12/25 days #90 tabs Allergies Allergy/AdvReac Type Severity Reaction Status Date / Time haloperidol [From Haldol] Allergy Unknown Verified 01/15/25 18:22 risperidone Allergy Anaphylaxis Verified 01/15/25 18:22 Review of Systems 2 Review of Systems: Yes all other systems are reviewed and are negative PMFSH Past Medical History Attestation statement: The following information was validated with the patient. Source: old records reviewed Medical History Cocaine abuse Depression Social History Social History Household Members: None Housing: Homeless Do you presently have visiting nurse or other home services: No Alcohol intake: former Patient Tobacco Use Status: Current everyday Tobacco user Tobacco use type: Cigarette Cigarette Packs Per Day: 1.5 Cigarettes Per Day: 30.0 Years Smoked: 20 e-Cigarette/Vaping Use: Currently Using Second Hand Smoke Exposure: Yes Substance Use Type: Crack/Cocaine Advance Directives: No Advance Directives Information Provided: No Do you have a plan to hurt others: No Plan service: No Sexual orientation: Straight/Heterosexual Physical Exam 2 Vital Signs: Vital Signs: Last Vital Signs Temp 98.5 F 01/16/25 05:00 Pulse 51 01/16/25 05:00 Resp 17 01/16/25 05:00 BP 97/61 01/16/25 05:00 Pulse Ox 100 01/16/25 05:00 O2 Del Method Room Air 01/16/25 05:00 BMI result Body Mass Index 28.9 Appearance: Alert.?No acute distress.?Normal affect. Eyes: Pupils equal, round and reactive to light.? ENT: Pharynx normal.?? Neck: Normal inspection.? Neck supple.?? CVS: Heart sounds normal. Normal heart rate and rhythm.? Pulses normal.?? Respiratory: No respiratory distress.? Lung sounds clear to auscultation bilaterally?? Abdomen: Soft and non-tender. Normoactive bowel sounds. Skin: Skin warm and dry.? Normal skin color.? Extremities: No lower extremity edema.? Neuro: Moves all extremities spontaneously. Sensation intact bilaterally. Ambulates with unsteady gait. Medical Decision Making Medical Decision Making [facility] Narrative: Patient is a 39-year-old male past medical history of polysubstance use disorder, depression who self presented to the emergency department stating ?crisis?. As per HPI it is difficult to obtain much meaningful history from patient, he admits to alcohol usage today as well as crack cocaine. He becomes easily agitated with any questioning as to what brought him here today. He is not entirely forthcoming. He is in behavioral health bought at this time, will plan to obtain serum labs for medical clearance in addition to toxicology testing. My interpretation of labs: No significant abnormality in patient's hematology chemistry, urine negative for UTI, U tox positive for buprenorphine fentanyl and cocaine At this time, 05:36, patient states that he feels well, not suicidal, not homicidal, patient does no longer want to talk to the care team and wants to be discharged. Patient is not on a Section 12, no indication to start a section 12. Differential Diagnosis Differential Diagnoses: The differential diagnosis associated with the presentation includes (See narrative above and below for further detail) Admission/Observation Consideration of admission/observation: Escalation of care including admission/observation considered Patient is being observed in the Emergency Department for encephalopathy. Observation time was started at 19:08 on 01/15/2025.?The patient is currently stable and non-toxic appearing. Observation is being initiated in the Emergency Department to allow time to help differentiate if the patient?s encephalopathy and delirium is due to alcohol intoxication and polysubstance abuse versus stroke, transient ischemic attack, major depression, overdose of medication, arrhythmia, seizure, or closed head injury/concussion. The patient will receive frequent assessments from the provider as well as the nursing staff. The patient will be monitored for the need for diagnostic imaging such as a CT head, MRI brain, chest x-ray, and serial EKGs to evaluate for prolonged QTc intervals. The patient will also be monitored for the need of PRN agitation medications such as Haldol, Ativan, and Benadryl. Consult Healthcare Provider Management of the patient was discussed with: Behavioral Health Provider (CARE team) Lab Data MDM Lab Attestation statement: I reviewed the patient's lab results. CBC is without leukocytosis, has a mild normocytic anemia not meeting transfusion criteria, no thrombocytopenia. No electrolyte derangement. No GLORIA. elevated AST/ALT at 70/132 with benign abdominal examination doubt for acute hepatobiliary etiology. Urinalysis without evidence of infection. Toxicology positive for Suboxone, fentanyl, cocaine. Alcohol level nondetectable 01/15/25 22:57 01/15/25 22:57 Labs: Lab Results 01/15/25 01/15/25 Range/Units 22:57 23:27 WBC 7.0 (4.8-10.8) X10*3/uL RBC 4.14 L (4.60-5.80) X10*6/uL Hgb 11.8 L (14.0-18.0) g/dl Hct 34.3 L (42.0-52.0) % MCV 82.9 (80.0-98.0) fL MCH 28.5 (27.0-33.0) pg MCHC 34.4 (31.0-36.0) g/dl RDW 13.1 (11.0-16.0) % Plt Count 163 (160-400) X10*3/uL MPV 9.6 (9.4-12.4) fL Immature Gran % (Auto) 0.3 (0.0-0.4) % Neut % (Auto) 42.7 L (45-73) % Lymph % (Auto) 43.3 H (20-40) % [place] % (Auto) 7.6 (2-11) % Eos % (Auto) 5.7 H (0-4) % Baso % (Auto) 0.4 (0-2) % Lymph # (Auto) 3.0 (1.2-4.9) X10*3/uL [place] # (Auto) 0.5 (0.1-1.2) X10*3/uL Eos # (Auto) 0.4 (0.0-0.4) X10*3/uL Baso # (Auto) 0.0 (0.0-0.2) X10*3/uL Abs Immat Gran (auto) 0.02 (0.00-0.03) X10*3/uL Absolute Neuts (auto) 3.0 (2.0-8.3) x10*3/uL Absolute Nucleated RBC 0.000 (0.0-0.012) X10*3/uL Nucleated RBC % (auto) 0.0 (0.0-0.2) /100WBC Sodium 137 (135-145) mmol/L Potassium 3.8 (3.3-5.1) mmol/L Chloride 104 (96-108) mmol/L Carbon Dioxide 27 (22-29) mmol/L Anion Gap 10 L (12-20) BUN 17 H (9-16) mg/dL Creatinine 0.81 (0.5-1.4) mg/dL Estim Creat Clear Calc 132.3 Estimated GFR > 60 Random Glucose 150 H (60-115) mg/dL Calcium 8.7 D (8.4-10.2) mg/dL Total Bilirubin 0.3 (0.0-1.0) mg/dL AST 70 H (5-37) U/L ALT 132 H (0-40) U/L Alkaline Phosphatase 104 (39-117) U/L Total Protein 6.6 (6.5-8.0) g/dL Albumin 4.1 (3.5-5.0) g/dL Urine Color Yellow Urine Appearance Clear Urine pH 6.0 (5.0-9.0) Ur Specific [place] 1.020 (1.005-1.025) Urine Protein Negative (Neg-Trace) mg/dL Urine Glucose (UA) Negative (Negative) mg/dL Urine Ketones Negative (Negative) mg/dL Urine Blood Negative (Negative) Urine Nitrite Negative (Negative) Ur Leukocyte Esterase Negative (Negative) Urine Opiates Screen Not Detected (Not Detect) Ur Buprenorphine Scrn Positive H (Not Detect) ng/mL Ur Oxycodone Screen Not Detected (Not Detect) ng/mL Urine Methadone Screen Not Detected (Not Detect) ng/mL Urine Fentanyl Screen POSITIVE H (Not Detect) Ur Barbiturates Screen Not Detected (Not Detect) Ur Phencyclidine Scrn Not Detected (Not Detect) Ur Amphetamines Screen Not Detected (Not Detect) U Benzodiazepines Scrn Not Detected (Not Detect) Urine Cocaine Screen POSITIVE H (Not Detect) U Marijuana (THC) Screen Not Detected (Not Detect) Ethyl Alcohol < 10 mg/dL External Record Review External record reviewed: Outpatient record Chronic Conditions Patient?s care impacted by: Other (See narrative above) Social Determinants Patient?s care significantly limited by Social Determinants of Health including: Alcoholism and drug addiction in family Discharge Plan Discharge Clinical Impression: Polysubstance abuse Patient Disposition: Home, Self-Care Instructions: Polysubstance Use Disorder (ED) Additional Instructions: Please follow-up with your primary care physician tomorrow. If you have any worsening or new symptoms, please return to the emergency room or call 911 Prescriptions: No Action quetiapine 50 mg Tablet 150 mg PO BEDTIME 30 Days Qty: 90 0RF buprenorphine-naloxone 8-2 mg film 1 film sublingual DAILY Interventions: [place]-Suicide Risk Severity Scale Last Done: 01/16/25 00:58 Print Language: [place]
[2025-01-15 19:12] VITALS: BP 100/69; PULSE 70
[2025-01-15 19:44] VITALS: BP 95/51; PULSE 74; RESP 18; TEMP 36.4; O2SAT 99
[2025-01-15 20:17] VITALS: BP 95/55; PULSE 65; RESP 20; TEMP 36.7; O2SAT 96
--- NOTE | 2025-01-15 22:49 | PC.NURSE ---
client yelling out of his room for some reason- t/w redirected him about using an unreasonable tone for his wants.
[2025-01-15 22:59] LABS: MANUAL DIFF FLAG NO
[2025-01-15 23:01] LABS: Basophils Percent Auto 0.4 % (0-2); Eosinophils Absolute Auto 0.4 X10*3/uL (0.0-0.4); Eosinophils Percent Auto 5.7 % (0-4); Hematocrit 34.3 % (42.0-52.0); Hemoglobin 11.8 g/dl (14.0-18.0); Imm Gran Abs Auto 0.02 X10*3/uL (0.00-0.03); Imm Gran Pct Auto 0.3 % (0.0-0.4); Lymphocytes Percent Auto 43.3 % (20-40); Mean Corpuscular HGB Conc 34.4 g/dl (31.0-36.0); Mean Corpuscular Hemoglobin 28.5 pg (27.0-33.0); Mean Corpuscular Volume 82.9 fL (80.0-98.0); Mean Platelet Volume 9.6 fL (9.4-12.4); Monocytes Absolute Auto 0.5 X10*3/uL (0.1-1.2); Monocytes Percent Auto 7.6 % (2-11); Neutrophils Percent Auto 42.7 % (45-73); Platelet Count 163 X10*3/uL (160-400); Red Blood Count 4.14 X10*6/uL (4.60-5.80); Red Cell Distribution Width 13.1 % (11.0-16.0)
[2025-01-15 23:17] LABS: Alanine Aminotransferase 132 U/L (0-40); Albumin Level 4.1 g/dL (3.5-5.0); Alkaline Phosphatase 104 U/L (39-117); Anion Gap 10 (12-20); Aspartate Amino Transferase 70 U/L (5-37); Bilirubin Total 0.3 mg/dL (0.0-1.0); Blood Urea Nitrogen 17 mg/dL (9-16); Calcium 8.7 mg/dL (8.4-10.2); Carbon Dioxide 27 mmol/L (22-29); Chloride 104 mmol/L (96-108); Creatinine Clr Calc Pharmacy 132.3; Estimated Glomerular Filt Rate > 60; Ethanol < 10 mg/dL; Glucose Random 150 mg/dL (60-115); Potassium 3.8 mmol/L (3.3-5.1); Sodium 137 mmol/L (135-145); Total Protein 6.6 g/dL (6.5-8.0)
[2025-01-15 23:32] LABS: Appearance Urine Clear; Color Urine Yellow; Glucose Urine UA Negative (Negative); Leukocyte Esterase Urine Negative (Negative); Nitrite Urine Negative (Negative); Urine Blood Negative (Negative); Urine Ketones Negative (Negative); Urine Protein Negative (Neg-Trace)
[2025-01-15 23:45] LABS: Amphetamine Screen Urine Not Detected (Not Detect); Barbiturates, Urine Not Detected (Not Detect); Benzodiazepines Screen Urine Not Detected (Not Detect); Buprenorphine Scr Positive (Not Detect); Cannabinoid Screen Urine Not Detected (Not Detect); Cocaine Screen Urine POSITIVE (Not Detect); Fentanyl, urine POSITIVE (Not Detect); Methadone Screen, Urine Not Detected (Not Detect); Opiate Screen Urine Not Detected (Not Detect); Oxycodone Screen Urine Not Detected (Not Detect); Phencyclidine Screen Urine Not Detected (Not Detect)
[2025-01-16 01:24] VITALS: BP 100/57; PULSE 59; RESP 16; TEMP 36.6; O2SAT 98
[2025-01-16 05:00] VITALS: BP 97/61; PULSE 51; RESP 17; TEMP 36.9; O2SAT 100
[2025-01-16 05:38] VITALS: BP 109/57; PULSE 85; RESP 16; TEMP 36.7
== END 2025-01-16 05:56 | disposition home or self-care (01) ==
PROVIDERS: Nurse Practitioner Family; Emergency Provider Internal Medicine
DX: F19.10 Other psychoactive substance abuse, uncomplicated (principal); F33.9 Major depressive disorder, recurrent, unspecified; F14.10 Cocaine abuse, uncomplicated; F17.210 Nicotine dependence, cigarettes, uncomplicated; Z79.899 Other long term (current) drug therapy
CPT/HCPCS: 36415; 80053; 80307; 81003; 85025; 99284